=== PATIENT | female | born 1980 | race Caucasian/White ===

== ENCOUNTER → 2017-06-03 | Outpatient (CLI) | payer BC, SELFPAY | PROVIDERS: Family Provider Emergency Medicine; PCP Emergency Medicine; Visit Provider Emergency Medicine | DX: R10.11 Right upper quadrant pain (principal) | CPT/HCPCS: 76705 ==

== ENCOUNTER → 2017-06-15 11:33 | Outpatient (REF) | payer BC, SELFPAY | LOC: LAB 11:33 | PROVIDERS: Visit Provider Nurse Practitioner Family | DX: R69 Illness, unspecified (principal) ==

== ENCOUNTER → 2017-08-09 08:38 | Outpatient (POV) | payer BC, SELFPAY ==
[2017-08-09 08:57] VITALS: BP 149/90; PULSE 75; RESP 16; O2SAT 99
[2017-08-09 09:04] VITALS: BMI 25.6
--- NOTE | 2017-08-09 13:03 | HMH.PMCON ---
Assessment and Plan (1) Facet arthropathy Current visit: Yes Status: Chronic Category: Medical Code(s): M46.90 - Unspecified inflammatory spondylopathy, site unspecified - Assessment and plan all Dx Assessment and Plan for all problems:: We will plan to facet joint injections bilaterally at L3-L4 L4-L5 L5-S1. I believe giving the patient's symptomology this would be very beneficial for her. Patient is currently on anti-inflammatory medication. Patient tried and failed anti-inflammatories and medication. This note was dictated using voice recognition software and may contain errors or omissions HPI - Data of Consult Consult date: 08/09/17 Requesting Physician: Jackie Miller APRN Primary Care Provider: Norm Us MD Family Provider: Norm Us MD - Consult Narrative Reason for consult: Chronic low back pain History of present illness: Ms. Castro is a 36 year old female resents today to talk about her chronic low back pain. Patient states that she has had increasing back pain over the last 4 months. Patient states that pain is constant and achy in nature. She rates her pain a 7 out of 10 today. Patient states that sitting increases her pain while repositioning decreases her pain. Patient has not tried injections, physical therapy, chiropractic therapy. She states her back pain is not radiating.Patient is doing at home stretching regimen and is currently using anti-inflammatories, tramadol from her PCP. CC: Jackie Miller APRN [facility] History I have reviewed the patient's past medical history: Yes Medical History: Reports:: Anxiety, Gall Bladder Disease, Hepatitis Denies:: Diabetes Mellitus Type 1, Diabetes Mellitus Type 2 Other Surgeries: Yes: No Previous Surgery Amputation: No Fractures: No - *Social History Educational Level: Attended College Smoking Status: Current every day smoker Tobacco Type: cigarettes # Packs/Day (cigarettes): 1 Alcohol Intake: never Substance Use Type: former substance user, heroin Occupational Status: employed - Psychiatric History Expresses thoughts of harming self/others: None Suicide Plan Description: No Plan Pschychiatric History:: Reports:: Anxiety *Family Hx:: Diabetes Review of Systems - Review of Systems ROS General: no recent weight change, no fever, no sleep disturbances Respiratory: no cough, no shortness of air, no recurring pulmonary infections Cardiovascular/Peripheral Vascular: No chest pain, No palpitations, no edema, no shortness of breath. Gastrointestinal: no incontinence, normal bowel movements reported Genitourinary: no incontinence Musculoskeletal: Back pain Psychiatric: normal mood/ affect Neurological: [denies weakness in extremities], [denies balance issues] Meds Allergies Allergy/AdvReac Type Severity Reaction Status Date / Time Penicillins Allergy Intermediate Hives Verified 07/26/17 12:41 latex [LATEX] Allergy Unknown Verified 07/26/17 12:41 Objective Vital signs: Pulse Resp BP Pulse Ox 75 16 149/90 99 08/09/17 08:57 08/09/17 08:57 08/09/17 08:57 08/09/17 08:57 Narrative: Physical Exam General: Alert and oriented x3, no acute distress, pleasant and cooperative, [on room air] Lungs: Resps E/U, Symmetrical chest expansion, Eyes: PERRL Musculoskeletal: Flexion and extension of lumbar spine somewhat guarded secondary to pain, deep tendon reflexes normal, strength in upper and lower extremities [5/5], normal gait noted, positive facet loading of the lumbar spine bilaterally Neurological: speech clear, gis analyst developer equal, no gross sensory deficits Opioid Risk Tool - Opioid Risk Tool-Female Family hx alcohol abuse: N Family hx illegal drugs: N Family hx rx drug abuse: N Personal hx alcohol abuse: N Personal hx illegal drugs: Y Personal hx rx drug abuse: N Age: 16-45 Hx of sexual abuse: N Mental health issues-ADD,OCD,Bipolar, etc: N Hx of depression: N
--- NOTE | 2017-08-09 13:07 | P.CONS_ITS ---
Assessment and Plan (1) Facet arthropathy Current visit: Yes Status: Chronic Category: Medical Code(s): M46.90 - Unspecified inflammatory spondylopathy, site unspecified - Assessment and plan all Dx Assessment and Plan for all problems:: We will plan to facet joint injections bilaterally at L3-L4 L4-L5 L5-S1. I believe giving the patient's symptomology this would be very beneficial for her. Patient is currently on anti-inflammatory medication. Patient tried and failed anti-inflammatories and medication. This note was dictated using voice recognition software and may contain errors or omissions HPI - Data of Consult Consult date: 08/09/17 Requesting Physician: Jackie Miller APRN Primary Care Provider: Norm Us MD Family Provider: Norm Us MD - Consult Narrative Reason for consult: Chronic low back pain History of present illness: Ms. Castro is a 36 year old female resents today to talk about her chronic low back pain. Patient states that she has had increasing back pain over the last 4 months. Patient states that pain is constant and achy in nature. She rates her pain a 7 out of 10 today. Patient states that sitting increases her pain while repositioning decreases her pain. Patient has not tried injections, physical therapy, chiropractic therapy. She states her back pain is not radiating.Patient is doing at home stretching regimen and is currently using anti-inflammatories, tramadol from her PCP. CC: Jackie Miller APRN [facility] History I have reviewed the patient's past medical history: Yes Medical History: Reports:: Anxiety, Gall Bladder Disease, Hepatitis Denies:: Diabetes Mellitus Type 1, Diabetes Mellitus Type 2 Other Surgeries: Yes: No Previous Surgery Amputation: No Fractures: No - *Social History Educational Level: Attended College Smoking Status: Current every day smoker Tobacco Type: cigarettes # Packs/Day (cigarettes): 1 Alcohol Intake: never Substance Use Type: former substance user, heroin Occupational Status: employed - Psychiatric History Expresses thoughts of harming self/others: None Suicide Plan Description: No Plan Pschychiatric History:: Reports:: Anxiety *Family Hx:: Diabetes Review of Systems - Review of Systems ROS General: no recent weight change, no fever, no sleep disturbances Respiratory: no cough, no shortness of air, no recurring pulmonary infections Cardiovascular/Peripheral Vascular: No chest pain, No palpitations, no edema, no shortness of breath. Gastrointestinal: no incontinence, normal bowel movements reported Genitourinary: no incontinence Musculoskeletal: Back pain Psychiatric: normal mood/ affect Neurological: [denies weakness in extremities], [denies balance issues] Meds Allergies Allergy/AdvReac Type Severity Reaction Status Date / Time Penicillins Allergy Intermediate Hives Verified 07/26/17 12:41 latex [LATEX] Allergy Unknown Verified 07/26/17 12:41 Objective Vital signs: Pulse Resp BP Pulse Ox 75 16 149/90 99 08/09/17 08:57 08/09/17 08:57 08/09/17 08:57 08/09/17 08:57 Narrative: Physical Exam General: Alert and oriented x3, no acute distress, pleasant and cooperative, [ on room air] Lungs: Resps E/U, Symmetrical chest expansion, Eyes: PERRL Musculoskeletal: Flexion and extension of lumbar spine somewhat guarded secondary to pain
== END ==
PROVIDERS: Family Provider Emergency Medicine; PCP Emergency Medicine; Visit Provider Clinical Nurse Specialist Family Health
DX: M46.90 Unspecified inflammatory spondylopathy, site unspecified (principal)
CPT/HCPCS: 99212; 99202

== ENCOUNTER → 2017-10-06 10:38 | Outpatient (CLI) | payer BC, SELFPAY ==
--- NOTE | 2017-10-06 10:41 | NM_ITS ---
HEPATOBILIARY SCAN WITH FATTY MEAL/ENSURE ORDERING PHYSICIAN : Norm Us MD PATIENT AGE: 36 years GENDER: Female HISTORY: Right upper quadrant pain and nausea Following 7.02 millicuries Tc Choletec, images of the RUQ were obtained. There is prompt uptake of radionuclide by the liver which is grossly unremarkable. Small bowel is visualized. This initial portion of the study is normal. The gallbladder was allowed to fill out to 60 minutes. Fatty meal/1 can of ensure over administered with imaging performed over 60 minutes minutes. Thereafter. The obtain data was analyzed and reveals a 54 % gallbladder ejection fraction (normal greater than 50%; borderline 35-50%). This is normal value . Visual inspection which supports adequate contraction of the gallbladder as well as compatible with this contraction reported by the computer analysis, IMPRESSION: Adequate functioning gallbladder. 54 % gallbladder ejection fraction by computer analysis. No pain with fatty meal.
[2017-10-06 11:34] LABS: HCG Qualitative, Serum Negative (Negative)
== END ==
PROVIDERS: Family Provider Emergency Medicine; PCP Emergency Medicine; Visit Provider Emergency Medicine
DX: Z32.00 Encounter for pregnancy test, result unknown (principal); R10.11 Right upper quadrant pain
CPT/HCPCS: 36415; 78227; 84703; A9537

== ENCOUNTER → 2017-10-08 16:07 | Outpatient (REF) | payer BC, SELFPAY ==
[2017-10-08 19:34] LABS: Amphetamine/Metha Screen,Urine Negative ng/mL (<1000); Barbiturates Screen,Urine Negative ng/mL (<200); Benzodiazepines Screen,Urine Negative ng/mL (200); Cannabinoid Screen,Urine Positive ng/mL (<50); Cocaine Screen,Urine Negative ng/g (<300); Methadone Screen,Urine Negative ng/mL (<300); Opiate Screen,Urine Negative ng/mL (<300); Phencyclidine Screen,Urine Negative ng/mL (<25)
== END ==
LOC: LAB 16:07
PROVIDERS: Visit Provider Emergency Medicine
DX: Z79.899 Other long term (current) drug therapy (principal)
CPT/HCPCS: 80305

== ENCOUNTER → 2017-12-24 14:59 | Outpatient (CLI) | payer BC, SELFPAY ==
--- NOTE | 2017-12-24 15:01 | XR_ITS ---
XR chest 2V HISTORY: ITS.REASON: reaction to ppd ORDERING PHYSICIAN: Norm Us MD PATIENT AGE: 37 years COMPARISON: None available FINDINGS: The cardiomediastinal silhouette and pulmonary vascularity are within normal limits. The lungs are clear without infiltrates, suspicious nodules, or pleural effusions. There are calcified right hilar nodes and a small calcified granuloma right lower lobe. There are no findings to suggest acute tuberculosis. No acute bony abnormalities. IMPRESSION: Old granulomatous disease, no acute chest pathology noted
== END ==
PROVIDERS: PCP Emergency Medicine; Visit Provider Emergency Medicine
DX: R76.11 Nonspecific reaction to tuberculin skin test without active tuberculosis (principal)
CPT/HCPCS: 71046

== ENCOUNTER → 2018-01-31 14:19 | Outpatient (POV) | payer BC, SELFPAY ==
[2018-01-31 14:37] VITALS: BP 128/94; PULSE 76; RESP 18; O2SAT 98; BMI 23.8
--- NOTE | 2018-01-31 16:29 | HMH.PAINSOAP ---
[facility] Pain Management SOAP Note Subjective:: Patient is a pleasant 37-year-old white female who presents today with increasing back pain. Patient was scheduled for lumbar facet joint injection/medial branch block however due to insurance reason she was unable to complete this. Patient still rates her pain a 7 out of 10 states that sitting increases her pain and repeat positioning decreases her pain. Patient's tried and failed stretching therapies. Patient states her back pain is not radiating in any way. Patient is on anti-inflammatories and tramadol from her PCP. Patient does have MRI showing facet hypertrophy. Patient has a lot of pain with any twisting movements. ROS General: no recent weight change, no fever, no sleep disturbances Respiratory: no cough, no shortness of air, no recurring pulmonary infections Cardiovascular/Peripheral Vascular: No chest pain, No palpitations, no edema, no shortness of breath. Gastrointestinal: no incontinence, normal bowel movements reported Genitourinary: no incontinence Musculoskeletal: Back pain Psychiatric: normal mood/ affect Neurological: [denies weakness in extremities], [denies balance issues] Objective:: Physical Exam General: Alert and oriented x3, no acute distress, pleasant and cooperative, [on room air] Lungs: Resps E/U, Symmetrical chest expansion, Eyes: PERRL Musculoskeletal: Flexion and extension of lumbar spine somewhat guarded secondary to pain, deep tendon reflexes normal, strength in upper and lower extremities [5/5], normal gait noted, positive facet loading bilateral lumbar spine, positive Kemps test Neurological: speech clear, manager medicaid equal, no gross sensory deficits Assessment:: Degenerative disc disease lumbar spine, facet arthropathy Plan:: We will schedule L3-L4 L4-L5 L5-S1 facet joint injection/medial branch blocks. I will follow-up with the patient 2 weeks after this and reassess her. Patient is not on any anticoagulation therapy. Patient does not have any open wounds. Patient is not on any antibiotic therapy. This note was dictated using voice recognition software and may contain errors or omissions
--- NOTE | 2018-01-31 16:32 | P.CONS_ITS ---
[facility] Pain Management SOAP Note Subjective:: Patient is a pleasant 37-year-old white female who presents today with increasing back pain. Patient was scheduled for lumbar facet joint injection/medial branch block however due to insurance reason she was unable to complete this. Patient still rates her pain a 7 out of 10 states that sitting increases her pain and repeat positioning decreases her pain. Patient's tried and failed stretching therapies. Patient states her back pain is not radiating in any way. Patient is on anti-inflammatories and tramadol from her PCP. Patient does have MRI showing facet hypertrophy. Patient has a lot of pain with any twisting movements. ROS General: no recent weight change, no fever, no sleep disturbances Respiratory: no cough, no shortness of air, no recurring pulmonary infections Cardiovascular/Peripheral Vascular: No chest pain, No palpitations, no edema, no shortness of breath. Gastrointestinal: no incontinence, normal bowel movements reported Genitourinary: no incontinence Musculoskeletal: Back pain Psychiatric: normal mood/ affect Neurological: [denies weakness in extremities], [denies balance issues] Objective:: Physical Exam General: Alert and oriented x3, no acute distress, pleasant and cooperative, [on room air] Lungs: Resps E/U, Symmetrical chest expansion, Eyes: PERRL Musculoskeletal: Flexion and extension of lumbar spine somewhat guarded secondary to pain, deep tendon reflexes normal, strength in upper and lower extremities [5/5], normal gait noted, positive facet loading bilateral lumbar spine, positive Kemps test Neurological: speech clear, program checker equal, no gross sensory deficits Assessment:: Degenerative disc disease lumbar spine, facet arthropathy Plan:: We will schedule L3-L4 L4-L5 L5-S1 facet joint injection/medial branch blocks. I will follow-up with the patient 2 weeks after this and reassess her. Patient is not on any anticoagulation therapy. Patient does not have any open wounds. Patient is not on any antibiotic therapy. This note was dictated using voice recognition software and may contain errors or omissions
== END ==
PROVIDERS: Family Provider Emergency Medicine; PCP Emergency Medicine; Visit Provider Clinical Nurse Specialist Family Health
DX: M51.36 Other intervertebral disc degeneration, lumbar region (principal); M54.06 Panniculitis affecting regions of neck and back, lumbar region
CPT/HCPCS: 99213

== ENCOUNTER → 2019-01-31 14:48 | Outpatient (CLI) | payer BC, SELFPAY ==
[2019-01-31 15:06] LABS: Basophils % 0.4 % (0.1-2.0); Eosinophils # 0.2 K/mm3 (0.0-0.4); Eosinophils % 2.6 % (0.1-12.0); Hematocrit 44.5 % (37.0-47.0); Hemoglobin 14.5 g/dL (12.2-16.2); Lymphocytes # 2.4 K/mm3 (0.7-4.5); Lymphocytes % 28.2 % (10-50); Mean Corpuscular HGB Conc 32.6 g/dL (31.8-35.4); Mean Corpuscular Hemoglobin 30.5 pg (27.0-31.2); Mean Corpuscular Volume 93.7 fl (81-99); Mean Platelet Volume 7.9 fl (7.4-10.4); Monocytes # 0.4 K/mm3 (0.1-1.0); Monocytes % 4.2 % (1.7-9.3); Neutrophils # 5.5 K/mm3 (1.8-7.8); Neutrophils % 64.6 % (37.0-80.0); Platelet Count 384 K/mm3 (142-424); Red Blood Count 4.75 M/mm3 (4.20-5.40); Red Cell Distribution Width 13.2 % (11.5-17.5); White Blood Count 8.5 K/mm3 (4.8-10.8)
[2019-01-31 16:03] LABS: Alanine Aminotransferase 24 U/L (12-78); Albumin/Globulin Ratio 1.1 (1.1-1.8); Alkaline Phosphatase 73 U/L (46-116); Anion Gap 16.3 mEq/L (5-15); Aspartate Amino Transferase 14 U/L (15-37); Bilirubin,Total 0.2 mg/dL (0.2-1.0); Blood Urea Nitrogen 9 mg/dL (7-18); Calcium 9.3 mg/dL (8.5-10.1); Carbon Dioxide 24 mmol/L (21.0-32.0); Chloride 103 mmol/L (98-107); Chol/HDL Ratio 6.5 (1-3.5); Cholesterol 203 mg/dL (140-200); Creatinine,Serum 0.77 mg/dL (0.55-1.02); Estimated Glomerular Filt Rate 85 ml/min (>60); Free T4 (Free Thyroxine) 0.92 ng/dl (0.76-1.46); GFR (African American) 103 ML/MIN (>60); Globulin 3.6 gm/dl (1.3-3.2); Glucose 87 mg/dL (74-106); HDL Cholesterol 31 mg/dL (29-89); LDL Cholesterol 106 mg/dL (0-130); Potassium 4.3 mmoL/L (3.5-5.1); Sodium 139 mmol/L (136-145); Thyroid Stimulating Hormone 1.48 uIU/ml (0.358-3.740); Total Protein,Serum 7.6 gm/dL (6.4-8.2); Triglycerides 331 mg/dL (30-200); VLDL Cholesterol 66 mg/dL (0-40)
[2019-02-02 12:36] LABS: Vitamin D 25 Hydroxy 25.9 ng/mL (30.0-100.0)
== END ==
PROVIDERS: Visit Provider Emergency Medicine
DX: R53.83 Other fatigue (principal); E55.9 Vitamin D deficiency, unspecified
CPT/HCPCS: 80053; 80061; 82652; 84439; 84443; 85025

== ENCOUNTER → 2019-05-22 09:56 | Outpatient (POV) | payer BC, SELFPAY | PROVIDERS: Visit Provider Specialist | DX: M54.16 Radiculopathy, lumbar region (principal); M79.605 Pain in left leg; M79.604 Pain in right leg; R20.0 Anesthesia of skin; R20.2 Paresthesia of skin | CPT/HCPCS: 95886; 95909 ==

== ENCOUNTER → 2019-10-11 13:46 | Outpatient (CLI) | payer MEDICAID, SELFPAY ==
--- NOTE | 2019-10-11 13:46 | MR_ITS ---
PROCEDURE: MR LUMBAR SPINE WO CON CLINICAL INDICATION: back pain Low back pain, right leg numbness and tingling COMPARISON: FOAM RUBBER MOLDER/O MRI-L-SPINE W/O from 04/23/2017 TECHNIQUE: Standard multiplanar multiecho sequences are performed without contrast. 3-D MIP and myelographic images are also rendered and reviewed FINDINGS: There is normal alignment. The spinal cord ends at the T12 level. The disc spaces are well preserved in the lumbar spine. No disc herniation or canal stenosis. There is some minimal facet hypertrophic change at L4-5 and L5-S1 which is nonspecific. IMPRESSION: Essentially negative MRI of the lumbar spine with no significant change. Minimal facet hypertrophy at L4-5 and L5-S1 not significantly changed. Dictated by: Kong Grajeda MD 10/12/2019 12:27 Electronically signed by Kong Grajeda MD in [place] 10/12/2019 12:27
== END ==
PROVIDERS: PCP Emergency Medicine; Visit Provider Emergency Medicine
DX: M54.9 Dorsalgia, unspecified (principal)
CPT/HCPCS: 72148; 76376

== ENCOUNTER 2019-12-01 12:03 | Emergency (ER) | payer MEDICAID, SELFPAY ==
[2019-12-01 12:18] VITALS: BP 131/96; PULSE 77; RESP 16; TEMP 36.8; O2SAT 100; BMI 23.8
[2019-12-01 12:34] VITALS: BP 120/83; PULSE 80; RESP 18; O2SAT 100
[2019-12-01 12:41] LABS: Basophils % 0.2 % (0.1-2.0); Eosinophils # 0.1 K/mm3 (0.0-0.4); Eosinophils % 0.9 % (0.1-12.0); Hematocrit 41.6 % (37.0-47.0); Hemoglobin 14.5 g/dL (12.2-16.2); Lymphocytes # 1.1 K/mm3 (0.7-4.5); Lymphocytes % 8.2 % (10-50); Mean Corpuscular HGB Conc 34.9 g/dL (31.8-35.4); Mean Corpuscular Hemoglobin 31.7 pg (27.0-31.2); Mean Corpuscular Volume 90.9 fl (81-99); Mean Platelet Volume 7.8 fl (7.4-10.4); Monocytes # 0.3 K/mm3 (0.1-1.0); Monocytes % 2.3 % (1.7-9.3); Neutrophils # 11.7 K/mm3 (1.8-7.8); Neutrophils % 88.4 % (37.0-80.0); Platelet Count 377 K/mm3 (142-424); Red Blood Count 4.58 M/mm3 (4.20-5.40); Red Cell Distribution Width 12.6 % (11.5-17.5); White Blood Count 13.3 K/mm3 (4.8-10.8)
[2019-12-01 12:42] LABS: Chloride 99 mmol/L (98-107); Sodium 135 mmol/L (136-145)
[2019-12-01 12:42] LABS: Microscopic, Urine URINE MICROSCOPIC (MICROSCOPIC); Urine Pregnancy, HCG Qual. Positive (Negative)
[2019-12-01 12:43] LABS: Appearance,Urine CLEAR (Clear); Blood, Urine 1+ (Negative); Color,Urine YELLOW (Yellow); Glucose,Urine (UA) Negative (Negative); Ketones,Urine 3+ (Negative); Leukocyte Esterase,Urine Negative (Negative); Nitrate,Urine Negative (Negative); Protein,Urine TRACE (Negative); Specific Gravity, Urine >= 1.030 (1.005-1.030); Urobilinogen,Urine 0.2 EU/dl (0.2)
[2019-12-01 12:45] LABS: Bilirubin,Urine 1+ (Negative)
[2019-12-01 12:45] LABS: Alanine Aminotransferase 17 U/L (12-78); Albumin Level 5.2 g/dl (3.5-5.0); Albumin/Globulin Ratio 1.3 (1.1-1.8); Alkaline Phosphatase 76 U/L (38-126); Aspartate Amino Transferase 27 U/L (14-36); Bilirubin,Total 0.7 mg/dl (0.2-1.3); Blood Urea Nitrogen 11 mg/dl (7-17); Calcium 10.2 mg/dl (8.4-10.2); Carbon Dioxide 21 mmol/L (22.0-30.0); Creatinine Clearance Estimated 120 mL/min (50-200); Estimated Glomerular Filt Rate 112 ml/min (>60); GFR (African American) 136 ML/MIN (>60); Glucose 103 mg/dl (74-100); Total Protein,Serum 9.2 g/dl (6.3-8.2)
[2019-12-01 12:46] LABS: MANUAL DIFFERENTIAL MANUAL DIFFERENTIAL (MANUAL DIFF)
[2019-12-01 12:52] LABS: Lymphocytes % 25 % (10-50); Neutrophils % 75 % (42-76); Total Cells Counted 100
[2019-12-01 12:53] LABS: Platelet Estimate Normal; RBC Morphology Normal
[2019-12-01 12:54] LABS: Bacteria,Urine 2+ /lpf; Mucus,Urine 1+ /lpf; RBC,Urine Occasional #/hpf (0-3)
[2019-12-01 13:34] VITALS: BP 120/69; PULSE 69; RESP 15; O2SAT 100
--- NOTE | 2019-12-01 13:43 | HMH.EDNVD ---
ED Disposition Clinical Impression: Hyperemesis gravidarum Disposition: Home, Self-Care Condition on Discharge: Good Instructions: DI for Diarrhea and Traveler's Diarrhea -- Adult, DI for Diarrhea and Traveler's Diarrhea -- Child, DI for Nausea -- Adult, DI for Nausea -- Child Prescriptions: Metoclopramide HCl [Reglan 10mg Tab] 10 mg PO QID 10 Days #30 tab Transmission Status: Pending to [id number] Referrals: Norm Us MD [Primary Care Provider] - - Critical Care Critical Care Time: No Attestation: On 12/01/19, the high probability of a clinically significant, sudden or life threatening deterioration of the following system(s) required my full and direct attention, intervention and personal management. The time I documented below is in addition to time spent performing reported procedures but includes the following listed in this critical care notation. Medical Decision Making - Medical Records Medical records reviewed: Yes: I reviewed the patient's medical records. - Hank Inquiry Pt receiving controlled substance: No Vital Signs: 12/01/19 12:18 12/01/19 12:34 12/01/19 13:34 Temperature 98.2 F Temperature Source Oral Pulse Rate [Right Radial] 77 80 69 Respiratory Rate 16 18 15 Blood Pressure [Right Arm] 131/96 H 120/83 120/69 Blood Pressure Mean [Right Arm] 107 95 86 Blood Pressure Source [Right Arm] Automatic Cuff Blood Pressure Position [Right Arm] Supine 02 Sat by Pulse Oximetry 100 100 100 Oxygen Delivery Method Room Air - Lab Data Lab results reviewed: Yes: I reviewed the patient's lab results. Lab Results 12/01/19 12:10: Urine Color Yellow, Urine Appearance Clear, Urine pH 6.0, Ur Specific Mcdermott >= 1.030, Urine Protein Trace, Urine Glucose (UA) Negative, Urine Ketones 3+, Urine Blood 1+, Urine Nitrate Negative, Urine Bilirubin 1+ A, Urine Urobilinogen 0.2, Ur Leukocyte Esterase Negative, Urine RBC Occasional, Urine WBC 3-5, Ur Squamous Epith Cells 5-10, Urine Bacteria 2+, Urine Mucus 1+ 12/01/19 12:10: Urine HCG, Qual Positive 12/01/19 12:22: WBC 13.3 H, RBC 4.58, Hgb 14.5, Hct 41.6, MCV 90.9, MCH 31.7 H, MCHC 34.9, RDW 12.6, Plt Count 377, MPV 7.8, Neut % (Auto) 88.4 H, Lymph % (Auto) 8.2 L, [place] % (Auto) 2.3, Eos % (Auto) 0.9, Baso % (Auto) 0.2, Neut # (Auto) 11.7 H, Lymph # (Auto) 1.1, [place] # (Auto) 0.3, Eos # (Auto) 0.1, Baso # (Auto) 0.0, Total Counted 100, Neutrophils % (Manual) 75, Lymphocytes % (Manual) 25, Platelet Estimate Normal, RBC Morphology Normal 12/01/19 12:22: Sodium 135 L, Potassium 4.0, Chloride 99, Carbon Dioxide 21 L, Anion Gap 19.0 H, BUN 11, Creatinine 0.60, Estimated Creat Clear 120, Estimated GFR 112, Est GFR ( Amer) 136, Glucose 103 H, Calcium 10.2, Total Bilirubin 0.7, AST 27, ALT 17, Alkaline Phosphatase 76, Total Protein 9.2 H, Albumin 5.2 H, Globulin 4.0 H, Albumin/Globulin Ratio 1.3 Result diagrams: 12/01/19 12:22 12/01/19 12:22 Orders (Tests/Meds): ED MEDICATIONS Generic Name Dose Route Start Last Admin Trade Name Freq PRN Reason Stop Dose Admin Sodium Chloride 1,000 mls @ 999 mls/hr 12/01/19 12:45 12/01/19 12:42 Sod Chlor 0.9% 1000ml Bag IV 12/01/19 13:45 999 mls/hr .Q1H1M BELEN Administration ORDERS Category Date Time Status Urine Culture Stat Micro 12/01/19 12:10 Received Nausea/Vomiting/Diarrhea HPI - General Chief complaint: Nausea/Vomiting/Diarrhea Stated complaint: 6 wk preg vomiting Time Seen by Provider: 12/01/19 12:30 Mode of Arrival: Ambulatory Limitations: No Limitations Description of Symptoms (Recalled from ER Triage Doc. by RN): Pt reports vomitting x2 days, pt reports she is approx 6 weeks . Pt denies abd pain, vaginal bleeding, burning with urination. - History of Present Illness MD complaint: nausea, vomiting Onset (ago): hour(s) Description of Vomiting: food contents Description of Diarrhea: water Associated Abdominal Pain: No Severity scale (1-10): 2 Co
[2019-12-01 13:54] VITALS: BP 124/85; PULSE 85; RESP 20; TEMP 36.8; O2SAT 100
== END 2019-12-01 13:55 | disposition home or self-care (01) ==
PROVIDERS: Emergency Provider Family Medicine; PCP Emergency Medicine
DX: O21.0 Mild hyperemesis gravidarum (principal); Z3A.01 Less than 8 weeks gestation of pregnancy; F41.8 Other specified anxiety disorders; Z88.0 Allergy status to penicillin
CPT/HCPCS: 80053; 81001; 81025; 85007; 85025; 87086; 87088; 87186; 96365; 99284

== ENCOUNTER → 2020-03-07 18:07 | Outpatient (CLI) | payer MEDICAID, SELFPAY | PROVIDERS: Visit Provider Nurse Practitioner Family | DX: N39.0 Urinary tract infection, site not specified (principal) | CPT/HCPCS: 87086 ==

== ENCOUNTER → 2020-05-16 16:20 | Outpatient (CLI) | payer OTHER, MEDICAID, SELFPAY | PROVIDERS: Visit Provider Nurse Practitioner Family | DX: N39.0 Urinary tract infection, site not specified (principal) | CPT/HCPCS: 87086 ==

== ENCOUNTER 2020-10-17 20:36 | Emergency (ER) | payer MEDICAID, SELFPAY ==
[2020-10-17 21:30] VITALS: BP 149/88; PULSE 69; RESP 20; TEMP 36.4; O2SAT 100; BMI 27.4
--- NOTE | 2020-10-17 21:58 | HMH.EDUTC ---
[facility] [place] Disposition Clinical Impression: Exposure to COVID-19 virus Sinusitis Qualifiers: Sinusitis location: unspecified location Chronicity: acute Recurrence: non-recurrent Qualified Code(s): J01.90 - Acute sinusitis, unspecified Disposition: Home, Self-Care Condition on Discharge: Good Instructions: Sinusitis, DI for Sinusitis Additional Instructions: Drink plenty of fluids. Take tylenol for pain or fever. Return if you begin to have difficulty breathing. Follow up with your regular doctor. GO TO THE ER FOR ANY WORSENING SYMPTOMS Prescriptions: Brompheniramine/Pseudoephed/Dm [Bromfed Dm Cough Syrup] 5 ml PO Q6HP PRN #240 syrup PRN Reason: Cough Transmission Status: Received by [id number] Azithromycin [Z-Ronald 250mg Tab*] 250 mg PO UD DOSE PK #6 tab Transmission Status: Received by [id number] Referrals: Norm Us MD [Primary Care Provider] - Forms: Work/School Release Time of Disposition: 22:10 Medical Decision Making - Medical Records Medical records reviewed: No: I reviewed the patient's medical records. - Hank Inquiry Pt receiving controlled substance: No Vital Signs: 10/17/20 21:30 10/17/20 22:14 Temperature 97.5 F L 97.5 F L Temperature Source Oral Pulse Rate 69 Pulse Rate [Right Brachial] 69 Respiratory Rate 20 20 Blood Pressure 149/88 H Blood Pressure [Right Arm] 149/88 H Blood Pressure Mean [Right Arm] 108 Blood Pressure Source [Right Arm] Automatic Cuff Blood Pressure Position [Right Arm] Sitting 02 Sat by Pulse Oximetry 100 Oxygen Delivery Method Room Air - Lab Data Lab results reviewed: Yes: I reviewed the patient's lab results. Lab Results 10/17/20 21:46: Influenza Type A Ag Negative, Influenza Type B Ag Negative 10/17/20 21:46: Strep Scn Rapid Clinic Negative Orders (Tests/Meds): ORDERS Category Date Time Status Covid-19 Nasal PCR ([facility]) Routine Lab 10/17/20 21:31 Received Strep Screen Confirmation Stat Micro 10/17/20 21:46 [facility]ceived [facility] HPI - General Stated complaint: coivd test Time Seen by Provider: 10/17/20 21:59 - History of Present Illness Provider Complaint: She states that she has had sinus congestion, sore throat, body aches, chilling and low grade fever for the past 2 days. She states that she has lost her sense of smell, but she sometimes has this symptom with sinus infections. She denies any known exposure to covid, but she would like to be tested. - Related Data Home Medications Medication Instructions Recorded Confirmed methadone 40 mg soluble tablet 80 mg PO DAILY tab 01/04/19 09/25/20 Previous Rx's Medication Instructions Recorded gabapentin 600 mg tablet 600 mg PO TID #90 tab 08/20/20 venlafaxine 75 mg capsule,extended 75 mg PO DAILY #30 cap 09/25/20 release 24 hr fluoxetine 60 mg tablet See Rx Instructions .ROUTE 10/04/20 .COMPLEX #90 tab Azithromycin [Z-Ronald 250mg Tab*] 250 mg PO UD DOSE PK #6 tab 10/17/20 Brompheniramine/Pseudoephed/Dm 5 ml PO Q6HP PRN #240 syrup 10/17/20 [Bromfed Dm Cough Syrup] Allergies Allergy/AdvReac Type Severity Reaction Status Date / Time Penicillins Allergy Intermediate Hives Verified 09/25/20 15:27 [facility] History - Hepatitis A Screen Attestation statement:: This patient has been screened for Hepatitis A risk factors. I have reviewed the patient's past medical history: Yes Medical History: Reports:: Anxiety, Cerebrovascular Accident, Depression, Gall Bladder Disease, Hepatitis Denies:: Diabetes Mellitus Type 1, Diabetes Mellitus Type 2 Other Medical History: Reports: Other Comment: Back pain Other Surgeries: Yes: No Previous Surgery Amputation: No Fractures: No - Social History Smoking Status: Current every day smoker Tobacco Type: cigarettes # Packs/Day (cigarettes): 1 Alcohol Intake: never Alcohol Intake Frequency:: holidays/special occasions only Substance Use Type: former substance user, methamphetamine Occupat
[2020-10-17 22:06] LABS: UTC Strep Screen (Rapid) Negative (Negative)
[2020-10-17 22:07] LABS: UTC Influenza A Antigen Negative (Negative); UTC Influenza B Antigen Negative (Negative)
[2020-10-17 22:14] VITALS: BP 149/88; PULSE 69; RESP 20; TEMP 36.4; O2SAT 100
== END 2020-10-17 22:19 | disposition home or self-care (01) ==
PROVIDERS: Emergency Provider Nurse Practitioner Family; PCP Emergency Medicine
DX: Z20.822 Contact with and (suspected) exposure to COVID-19 (principal); J01.90 Acute sinusitis, unspecified; F41.8 Other specified anxiety disorders
CPT/HCPCS: 87804; 87880; 99202; G0463; U0003

== ENCOUNTER 2021-01-09 13:12 | Emergency (ER) | payer MEDICAID, SELFPAY ==
[2021-01-09 13:15] VITALS: BP 126/79; PULSE 87; RESP 18; TEMP 37.2; O2SAT 97; BMI 27.4
[2021-01-09 13:53] LABS: UTC Strep Screen (Rapid) Negative (Negative)
[2021-01-09 13:55] VITALS: BP 126/79; PULSE 87; RESP 18; TEMP 37.2; O2SAT 97
--- NOTE | 2021-01-09 14:09 | HMH.EDUTC ---
[facility] [place] Disposition Clinical Impression: Viral syndrome Disposition: Home, Self-Care Condition on Discharge: Good Instructions: Acute Bronchitis, Preventing the Spread of Coronavirus Discharge Instructions Additional Instructions: Drink plenty of fluids. Take tylenol or ibuprofen for pain or fever. Take the medications as directed. Follow up with your regular doctor. GO TO THE ER FOR ANY WORSENING SYMPTOMS Prescriptions: Ondansetron [Zofran 4mg ODT] 4 mg PO Q8HP PRN #20 tab.rapdis PRN Reason: Nausea Transmission Status: Received by [id number] Azithromycin [Z-Ronald 250mg Tab*] 250 mg PO UD DOSE PK #6 tab Transmission Status: Received by [id number] Referrals: Norm Us MD [Primary Care Provider] - Forms: Work/School Release Time of Disposition: 14:13 Medical Decision Making - Medical Records Medical records reviewed: No: I reviewed the patient's medical records. - Hank Inquiry Pt receiving controlled substance: No Vital Signs: 01/09/21 13:15 01/09/21 13:55 Temperature 98.9 F 98.9 F Temperature Source Oral Pulse Rate 87 Pulse Rate [Right Brachial] 87 Respiratory Rate 18 18 Blood Pressure 126/79 Blood Pressure [Right Arm] 126/79 Blood Pressure Mean [Right Arm] 94 Blood Pressure Source [Right Arm] Automatic Cuff Blood Pressure Position [Right Arm] Sitting 02 Sat by Pulse Oximetry 97 Oxygen Delivery Method Room Air - Lab Data Lab Results 01/09/21 13:39: Strep Scn Rapid Clinic Negative Orders (Tests/Meds): ORDERS Category Date Time Status Strep Screen Confirmation Stat Micro 01/09/21 13:39 Received [facility] [place] HPI - General Stated complaint: covid test/sympoms Time Seen by Provider: 01/09/21 13:25 Mode of Arrival: Ambulatory Source of Information: Patient Limitations: No Limitations Description of Symptoms (Recalled from Triage Doc. by RN): PATIENT C/O COUGH, SORE THROAT, HEADACHE AND WEAKNESS X 2 DAYS HEENT Symptoms (Recalled from RN notes): Yes Resp Symptoms (Recalled from RN notes): Yes Skin Symptoms (Recalled from RN notes): No MS Symptoms (Recalled from RN notes): No Functional Status (Recalled from RN notes): WNL - History of Present Illness Provider Complaint: She c/o sore throat, chest congestion, n/v and feeling bad for the past 2 days. Her mother currently has covid and she lives with her mother. - Related Data Home Medications Medication Instructions Recorded Confirmed methadone 40 mg soluble tablet 80 mg PO DAILY tab 01/04/19 11/19/20 Previous Rx's Medication Instructions Recorded buspirone 10 mg tablet 10 mg PO TID #90 tab 11/19/20 fluoxetine 60 mg tablet See Rx Instructions .ROUTE 12/25/20 .COMPLEX #90 tab pregabalin 75 mg capsule 75 mg PO BID 15 Days #30 cap 12/31/20 venlafaxine 150 mg See Rx Instructions .ROUTE 12/31/20 capsule,extended release 24 hr .COMPLEX #30 cap Azithromycin [Z-Ronald 250mg Tab*] 250 mg PO UD DOSE PK #6 tab 01/09/21 Ondansetron [Zofran 4mg ODT] 4 mg PO Q8HP PRN #20 tab.rapdis 01/09/21 Allergies Allergy/AdvReac Type Severity Reaction Status Date / Time Penicillins Allergy Intermediate Hives Verified 11/19/20 15:43 - Worker's Comp Is this a Worker's Comp case?: No [facility] History - Hepatitis A Screen Drug use history?: No High risk sexual behaviors?: No History of sexually transmitted infection?: No Currently employed?: No Childcare worker?: No Do you have indoor plumbing?: Yes Do you have electricity?: Yes Attestation statement:: This patient has been screened for Hepatitis A risk factors. I have reviewed the patient's past medical history: Yes Medical History: Reports:: Anxiety, Cerebrovascular Accident, Depression, Gall Bladder Disease, Hepatitis Denies:: Diabetes Mellitus Type 1, Diabetes Mellitus Type 2 Other Medical History: Reports: Other Comment: Back pain Other Surgeries: Yes: No Previous Surgery Amputation: No Fractures: No - Social Hist
--- NOTE | 2021-01-09 19:58 | PC.NURSE ---
PATIENT NOTIFIED OF POSITIVE COVID TEST AT THIS TIME
== END 2021-01-09 14:21 | disposition home or self-care (01) ==
PROVIDERS: Emergency Provider Nurse Practitioner Family; PCP Emergency Medicine
DX: U07.1 COVID-19 (principal); B34.9 Viral infection, unspecified; F17.210 Nicotine dependence, cigarettes, uncomplicated; F41.8 Other specified anxiety disorders
CPT/HCPCS: 87880; 99203; G0463; U0003

== ENCOUNTER → 2021-05-09 13:18 | Outpatient (CLI) | payer MEDICAID, SELFPAY ==
[2021-05-09 13:49] LABS: Chloride 103 mmol/L (98-107)
[2021-05-09 13:50] LABS: Sodium 139 mmol/L (136-145)
[2021-05-09 13:52] LABS: Alanine Aminotransferase 15 U/L (12-78); Alkaline Phosphatase 100 U/L (38-126); Aspartate Amino Transferase 30 U/L (14-36); Bilirubin,Total 0.3 mg/dl (0.2-1.3); Blood Urea Nitrogen 5 mg/dl (7-17); Carbon Dioxide 26 mmol/L (22.0-30.0); Cholesterol 316 mg/dl (140-200); Estimated Glomerular Filt Rate 94 ml/min (>60); GFR (African American) 113 ML/MIN (>60)
[2021-05-09 13:53] LABS: Albumin Level 4.2 g/dl (3.5-5.0); Albumin/Globulin Ratio 1.4 (1.1-1.8); Calcium 9.5 mg/dl (8.4-10.2); Chol/HDL Ratio 7.7 (1-3.5); Globulin 3.1 g/dL (1.3-3.2); Glucose 84 mg/dl (74-100); HDL Cholesterol 41 mg/dl (40-60); Total Protein,Serum 7.3 g/dl (6.3-8.2)
[2021-05-09 13:54] LABS: Triglycerides 465 mg/dl (30-150)
[2021-05-09 13:55] LABS: Basophils % 0.5 % (0.1-2.0); Eosinophils # 0.2 K/mm3 (0.0-0.4); Eosinophils % 2.6 % (0.1-12.0); Lymphocytes # 1.8 K/mm3 (0.7-4.5); Lymphocytes % 20.2 % (10-50); Mean Corpuscular HGB Conc 33.4 g/dL (31.8-35.4); Mean Corpuscular Hemoglobin 29.9 pg (27.0-31.2); Mean Corpuscular Volume 89.4 fl (81-99); Mean Platelet Volume 8.1 fl (7.4-10.4); Monocytes # 0.4 K/mm3 (0.1-1.0); Monocytes % 4.6 % (1.7-9.3); Neutrophils # 6.3 K/mm3 (1.8-7.8); Neutrophils % 72.1 % (37.0-80.0); Platelet Count 392 K/mm3 (142-424); Red Blood Count 4.36 M/mm3 (4.20-5.40); Red Cell Distribution Width 14.6 % (11.5-17.5); White Blood Count 8.7 K/mm3 (4.8-10.8)
[2021-05-09 14:04] LABS: Direct LDL Cholesterol 127.11 mg/dL (100-129)
[2021-05-09 14:23] LABS: Erythrocyte Sedimentation Rate 43 mm/hr (0-20)
[2021-05-09 14:26] LABS: Thyroid Stimulating Hormone 1.23 uIU/mL (0.465-4.68)
[2021-05-09 14:49] LABS: 25-OH Vitamin D, Total 31.2 ng/mL (30-100)
[2021-05-09 15:07] LABS: Amphetamine/Metha Screen,Urine Negative ng/ml (<1000); Barbiturates Screen,Urine Negative ng/ml (<200)
[2021-05-09 15:08] LABS: Benzodiazepines Screen,Urine Negative ng/ml (<200)
[2021-05-09 15:09] LABS: Cannabinoid Screen,Urine Positive ng/ml (<50); Cocaine Screen,Urine Negative ng/ml (<300)
[2021-05-09 15:10] LABS: Methadone Screen,Urine Positive ng/ml (<300); Opiate Screen,Urine Negative ng/ml (<300)
[2021-05-09 15:11] LABS: Phencyclidine Screen,Urine Negative ng/ml (<25)
== END ==
PROVIDERS: Visit Provider Emergency Medicine
DX: E66.3 Overweight (principal); E55.9 Vitamin D deficiency, unspecified; Z79.899 Other long term (current) drug therapy; Z68.25 Body mass index [BMI] 25.0-25.9, adult
CPT/HCPCS: 80053; 80061; 80305; 82306; 84443; 85025; 85651

== ENCOUNTER → 2021-05-22 14:38 | Outpatient (POV) | payer MEDICAID, SELFPAY ==
[2021-05-22 15:17] VITALS: BP 154/90; PULSE 85; RESP 18; O2SAT 97; BMI 28.7
--- NOTE | 2021-05-25 14:44 | HMH.PMCON ---
Assessment and Plan (1) Degenerative joint disease (DJD) of lumbar spine Status: Chronic Category: Medical Code(s): M47.816 - Spondylosis without myelopathy or radiculopathy, lumbar region - Assessment and plan all Dx Assessment and Plan for all problems:: Patient does have per MRI report facet arthropathy and hypertrophy at L4-L5 L5-S1. We will schedule her for facet joint injections/medial branch blocks at L4-L5 L5-S1 bilaterally. The patient is not on any anticoagulation therapy. She is not diabetic. We will plan for the injections. If she does get relief we will proceed with a second round of injections. She does understand she will need to get at least 60% relief with the 2 rounds of injections. If patient gets relief greater than 60% with each round, we will plan for RFA. Possible side effects of corticosteroids have been discussed with the patient. Risks and benefits of the procedure have been explained to the patient. Patient would like to proceed with the procedure. Patient has been instructed to contact the clinic with any concerns before the next appointment. Dr. Portillo has reviewed this note and agrees with this plan of care. This note was dictated using voice recognition software and make contain errors or omissions. HPI - Data of Consult Patient: new to practice Consult date: 05/25/21 Requesting Physician: Breanna Lopez APRN - Consult Narrative Reason for consult: Low back pain History of present illness: Ms. Moreon is a 40 year old female who presents today for consultation for low back pain. The patient says that she has pain made worse with bending forward and turning extending at waist. She says that the pain has progressively worsened over the last 6 to 7 years. She says that she does have some numbness in her lower extremities but denies any pain. She reports that rising from a sitting position and standing make the pain worse. Walking does not worsen the pain. She says that the pain has gotten worse over the last 2 months after delivery of her child. She does have an MRI from 10/11/2019. She is currently taking pregabalin 75 mg 1 tablet p.o. twice daily by Dr. Us. She does take anti-inflammatories as needed. Over the years she has tried physical therapy for more than 6 weeks and does continue with home stretching. She does rate her pain a 6 out of 10 today. CC: Breanna Lopez APRN [facility] History I have reviewed the patient's past medical history: Yes Medical History: Reports:: Anxiety, Cerebrovascular Accident, Depression, Gall Bladder Disease, Hepatitis Denies:: Diabetes Mellitus Type 1, Diabetes Mellitus Type 2 *Have you ever received a pneumonia vaccine?: No *Have you received a flu vaccine this season?: No Other Medical History: Reports: Other Other Surgeries: Yes: No Previous Surgery Amputation: No Fractures: No - *Social History Smoking Status: Current every day smoker Tobacco Type: cigarettes # Packs/Day (cigarettes): 1 Alcohol Intake: never Alcohol Intake Frequency:: holidays/special occasions only Substance Use Type: former substance user, methamphetamine *Occupational Status:: employed Housing: house Household Members: spouse *Travel in the last 8 weeks: None - Psychiatric History Pschychiatric History:: Reports:: Anxiety, Depression Family Hx:: Diabetes Review of Systems - Constitutional Comments: Review of Systems General: No recent weight changes, no fever, no sleep disturbances Respiratory: No cough, no shortness of air, no recurring pulmonary infections Cardiovascular/peripheral vascular: No chest pain, no palpitations, no edema, no shortness of breath Gastrointestinal: No new onset incontinence, normal bowel movements reported Genitourinary: No new onset incontinence Musculoskeletal: Low back pain made worse with turning and twisting at waist, made worse with extension at waist Psychiatric: [Normal mood/affect] Neurological: [Denies weakn
== END ==
PROVIDERS: Visit Provider Clinical Nurse Specialist Family Health
DX: M47.816 Spondylosis without myelopathy or radiculopathy, lumbar region (principal)
CPT/HCPCS: 99202; G0463

== ENCOUNTER → 2021-05-27 13:41 | Outpatient (CLI) | payer MEDICAID, SELFPAY ==
--- NOTE | 2021-05-27 13:41 | MR_ITS ---
PROCEDURE: MR LUMBAR SPINE WO CON CLINICAL INDICATION: back pain COMPARISON: MR MR LUMBAR SPINE WO CON from 10/11/2019 TECHNIQUE: Standard multiplanar multiecho sequences are performed without contrast. 3-D MIP and myelographic images are also rendered and reviewed FINDINGS: There is normal alignment. The spinal cord ends at the T12 level. T12-L1: Mild degenerative disc disease. L1-L2: Unremarkable. L2-L3: Unremarkable. L3-L4: Unremarkable. L4-5: Mild facet and ligamentum hypertrophy. L5-S1: Facet and ligamentum hypertrophic change with mild bilateral lateral recess narrowing. The facet hypertrophy does appear slightly worse on the left compared to the previous exam with slight increase in left lateral recess narrowing. Canal stenosis is present at this level at 10 mm. No extruded herniated disc. IMPRESSION: 1. L4-5: Mild facet and ligamentum hypertrophy. 2. L5-S1: Facet and ligamentum hypertrophic change with mild bilateral lateral recess narrowing. The facet hypertrophy does appear slightly worse on the left compared to the previous exam with slight increase in left lateral recess narrowing with canal stenosis 3. No extruded herniated disc Dictated by: Kong Grajeda MD 05/28/2021 10:41 Kong Grajeda MD in [place] 05/28/2021 10:41
== END ==
PROVIDERS: PCP Emergency Medicine; Visit Provider Emergency Medicine
DX: M54.9 Dorsalgia, unspecified (principal); M54.50 Low back pain, unspecified
CPT/HCPCS: 72148; 76376

== ENCOUNTER 2021-06-11 12:51 | Day surgery (SDC) | payer MEDICAID, SELFPAY ==
[2021-06-11 12:59] VITALS: BP 157/98; PULSE 60; RESP 20; TEMP 36.7; O2SAT 100; BMI 28.3
[2021-06-11 13:13] VITALS: BP 149/92; PULSE 62; RESP 18; O2SAT 99
[2021-06-11 13:15] VITALS: PULSE 72; RESP 18; O2SAT 100
--- NOTE | 2021-06-11 13:19 | HMH.PMPROC ---
- Procedure Date: 06/11/21 Time: 13:19 Anesthesiologist:: Arron Portillo MD Complications:: None Pre-procedure Diagnosis:: Degenerative disc disease of lumbar spine with lumbar spondylosis and lumbar facet arthropathy Post-procedure Diagnosis:: Same Indications for Procedure:: Patient is a pleasant 40-year-old white female who we are treating for low back pain with lumbar spondylosis and lumbar facet arthropathy. She has increasing pain over the facet joints of L4-5 and L5-S1. There is increased pain with extension and twisting. She presents for bilateral medial branch block/facet joint injections of L4-5 and L5-S1 today. Procedure Details:: Lumbar medial branch block Informed consent was obtained and the risks and benefits of the procedure was explained to the patient. The back was prepped using ChloraPrep. The skin and subcutaneous tissues were anesthetized using lidocaine. I placed 22-gauge spinal needles into the facet joint/medial branches of L4-L5 and L5-S1 bilaterally. Needle placement was confirmed with dye. After this we injected 3 mL bupivacaine 0.25% and Depo-Medrol 20 mg into each facet joint/medial branch of L4-L5 and L5-S1 bilaterally. We used a total of 80 mg Depo-Medrol for both levels bilaterally. The patient tolerated the procedure well with no complications. Plan and Disposition:: We will follow-up with her in 2 weeks. Will reevaluate symptoms at that time. If successful we will plan on RF ablation to the facet joint/medial branches of L4-5 and L5-S1 bilaterally.
[2021-06-11 13:25] VITALS: BP 131/88; PULSE 63; RESP 20; O2SAT 100
== END 2021-06-11 13:26 | disposition home or self-care (01) ==
LOC: SC.PAINP 12:52
PROVIDERS: PCP Emergency Medicine; Visit Provider Anesthesiology
DX: M51.36 Other intervertebral disc degeneration, lumbar region (principal); M47.816 Spondylosis without myelopathy or radiculopathy, lumbar region; M54.06 Panniculitis affecting regions of neck and back, lumbar region; F41.9 Anxiety disorder, unspecified; F32.A Depression, unspecified; Z72.0 Tobacco use; Z87.19 Personal history of other diseases of the digestive system; Z88.0 Allergy status to penicillin
CPT/HCPCS: 64493; 64494; J1040; Q9966

== ENCOUNTER → 2021-07-14 11:10 | Outpatient (POV) | payer BC, MEDICAID, SELFPAY ==
[2021-07-14 11:15] VITALS: BP 132/80; PULSE 64; RESP 18; O2SAT 98; BMI 29.0
--- NOTE | 2021-07-14 11:46 | P.CONS_ITS ---
[facility] Pain Management SOAP Note Subjective:: Patient is a female who presents today for follow-up. She recently had medial branch block/facet joint injection at L4-L5 L5-S1. She got 1 week of relief at about 70 to 80%. The patient's pain has returned. Today, she rates her pain a 7 out of 10. She was much more functional following the injection and able to bend forward. She says her pain has returned. She is having worse pain in the a.m. upon awakening and in the p.m. when lifting her daughter. She says that she is now starting to have numbness and tingling into the right lower extremity and right foot. Patient's last MRI does show spinal stenosis lumbar spine. Today, however, she says the pain is made worse with bending. Review of Systems General: No recent weight changes, no fever, no sleep disturbances Respiratory: No cough, no shortness of air, no recurring pulmonary infections Cardiovascular/peripheral vascular: No chest pain, no palpitations, no edema, no shortness of breath Gastrointestinal: No new onset incontinence, normal bowel movements reported Genitourinary: No new onset incontinence Musculoskeletal: Low back pain made worse with bending forward and extension turning twisting at waist Psychiatric: [Normal mood/affect] Neurological: [Denies weakness in extremities], [denies balance issues] Objective:: Physical exam General: Alert and oriented x3, no acute distress, pleasant and cooperative Lungs: Respirations even and unlabored, symmetrical chest expansion Eyes: PERRL Musculoskeletal: Flexion and extension of lumbar [spine] somewhat guarded secondary to pain, [antalgic gait noted], positive Kemps test Neurological: Speech clear, no gross sensory deficit Assessment:: Degenerative disc disease lumbar spine with lumbar facet arthropathy, lumbar spondylosis, and spinal stenosis lumbar spine Plan:: We will schedule the patient for lumbar medial branch block at L4-L5 L5-S1. This will be the patient's number 2 injection. She is not on any anticoagulation therapy. She is not diabetic. We will follow up with her afterwards for further evaluation. We will give her tramadol 50 mg 1 tablet p.o. 3 times daily. Possible side effects of corticosteroids have been discussed with the patient. Risks and benefits of the procedure have been explained to the patient. Patient would like to proceed with the procedure. Patient has been instructed to contact the clinic with any concerns before the next appointment. Dr. Portillo has reviewed this note and agrees with this plan of care. This note was dictated using voice recognition software and make contain errors or omissions. [facility] History I have reviewed the patient's past medical history: Yes Medical History: Reports:: Anxiety, Cerebrovascular Accident, Depression, Gall Bladder Disease, Hepatitis, Hyperlipidemia Denies:: Diabetes Mellitus Type 1, Diabetes Mellitus Type 2 *Have you ever received a pneumonia vaccine?: No *Have you received a flu vaccine this season?: No Other Medical History: Reports: Arthritis, Other Other Surgeries: Yes: No Previous Surgery Amputation: No Fractures: No - *Social History Smoking Status: Current every day smoker Tobacco Type: cigarettes # Packs/Day (cigarettes): 1 Alcohol Intake: never Alcohol Intake Frequency:: holidays/special occasions only Substance Use Type: marijuana *Occupational Status:: employed Housing: house Household Members: spouse *Travel in the last 8 weeks: None - Psychiatric History Pschychiatric History:: Reports:: Anxiety, Depression Family Hx:: Other
== END ==
PROVIDERS: Visit Provider Clinical Nurse Specialist Family Health
DX: M51.36 Other intervertebral disc degeneration, lumbar region (principal); M47.816 Spondylosis without myelopathy or radiculopathy, lumbar region; M54.02 Panniculitis affecting regions of neck and back, cervical region; M48.00 Spinal stenosis, site unspecified
CPT/HCPCS: 99212; G0463

== ENCOUNTER 2021-08-29 10:50 | Day surgery (SDC) | payer BC, MEDICAID, SELFPAY ==
[2021-08-29 10:56] VITALS: BP 139/92; BP 140/78; BP 142/79; PULSE 76; PULSE 79; PULSE 88; RESP 18; RESP 20; TEMP 36.9; O2SAT 100; BMI 29.2
--- NOTE | 2021-08-29 11:21 | P.PCN_ITS ---
- Procedure Date: 08/29/21 Time: 11:21 Anesthesiologist:: Ginger Garcia MD Complications:: None Pre-procedure Diagnosis:: Degenerative disease of lumbar spine with lumbar facet arthropathy and spondylosis Post-procedure Diagnosis:: Same Indications for Procedure:: This patient is a very pleasant 40-year-old white female who presents today with chronic low back pain related to the above diagnosis. She has tried and failed conservative treatment and oral pain medications and home stretching program for greater than 6 weeks. He receives undergone lumbar facet joint/medial branch bl ock injections at L4-L5 and L5-S1 got 70 to 80% pain relief for approximately 1 week. She states that she has been more functional since she underwent the injections and is able to experience more mobility as well. Her pain is since returned and she is requesting a repeat injection today. The plan for today is for the patient to undergo diagnostic lumbar facet joint/medial branch block injections at L4-L5 and L5-S1 bilaterally #2. Procedure Details:: Lumbar medial branch block Informed consent was obtained and the risks and benefits of the procedure was explained to the patient. The back was prepped using ChloraPrep. The skin and subcutaneous tissues were anesthetized using lidocaine. I placed 22-gauge spinal needles into the facet joint/medial branches of L3-L4, L4-L5 and L5-S1 bilaterally. Needle placement was confirmed with dye. After this we injected 3 mL bupivacaine 0.25% and Depo-Medrol into each facet joint/medial branch of L4- L5, L5-S1 bilaterally. We used a total of 80 mg Depo-Medrol for all 2 levels bilaterally. The patient tolerated the procedure well with no complications. Plan and Disposition:: We will follow-up in 2 weeks with this patient. Will reevaluate pain symptoms at that time.
[2021-08-29 11:54] VITALS: BP 146/94; PULSE 73; RESP 20; O2SAT 99
== END 2021-08-29 11:55 | disposition home or self-care (01) ==
LOC: SC.PAINP 10:51
PROVIDERS: PCP Emergency Medicine; Visit Provider Anesthesiology Pain Medicine
DX: M51.36 Other intervertebral disc degeneration, lumbar region (principal); M54.06 Panniculitis affecting regions of neck and back, lumbar region; M47.816 Spondylosis without myelopathy or radiculopathy, lumbar region; E78.5 Hyperlipidemia, unspecified; Z86.73 Personal history of transient ischemic attack (TIA), and cerebral infarction without residual deficits; K75.9 Inflammatory liver disease, unspecified; F41.9 Anxiety disorder, unspecified; F32.A Depression, unspecified; Z88.0 Allergy status to penicillin
CPT/HCPCS: 64493; 64494; J1040; Q9966

== ENCOUNTER → 2021-10-30 10:01 | Outpatient (POV) | payer BC, MEDICAID, SELFPAY ==
[2021-10-30 10:16] VITALS: BP 156/101; PULSE 94; RESP 19; TEMP 36.8; O2SAT 100; BMI 29.2
--- NOTE | 2021-10-30 11:39 | HMH.PAINSOAP ---
[facility] Pain Management SOAP Note Subjective:: Patient is a pleasant 40-year-old female who presents today for follow-up. Patient is currently being treated for degenerative disc disease of the lumbar spine, lumbar facet arthropathy, lumbar spondylosis. We have been managing this patient with injective therapy. Patient has had 2 rounds of bilateral diagnostic facet/medial branch block injections at L4-L5 and L5-S1 that provided 70 to 80% relief that lasted for 2 to 3 days. She is complaining of worsening pain on her lumbar spine today rates her pain as 4 out of 10. She has tried and failed conservative therapies such as oral medication, physical therapy, and home exercises for greater than 6 weeks. She is also prescribed tramadol 50 mg 3 times a day by our clinic. She is on Lyrica 150 mg 2 times a day that is prescribed by Dr. Us. Denies any side effects from these medications. Hank [phone] with an active morphine equivalent of 15. Since patient is on a scheduled medication, we will obtain a drug screen at her next appointment. From the patient's Drug screen on 05/09/21, she is positive for a non-prescribed methadone and also positive for THC. If the patient is positive for these at her next drug screen, we will not be able to continue her tramadol prescription. Review of Systems: General: No recent weight changes, no fever, no sleep disturbances Respiratory: No cough, no shortness of air, no recurring pulmonary infections Cardiovascular/peripheral vascular: No chest pain, no palpitations, no edema, no shortness of breath Gastrointestinal: No new onset incontinence, normal bowel movements reported Genitourinary: No new onset incontinence Musculoskeletal: Low back pain Psychiatric: [Normal mood/affect] Neurological: [Denies weakness in extremities], [denies balance issues] Objective:: Physical Exam: General: Alert and oriented x3, no acute distress, pleasant and cooperative Lungs: Respirations even and unlabored, symmetrical chest expansion Eyes: PERRL Musculoskeletal: Flexion and extension of lumbar [spine] somewhat guarded secondary to pain, [antalgic gait noted]; positive Gonzalez Neurological: Speech clear, no gross sensory deficit Assessment:: Degenerative disc disease of lumbar spine Lumbar spondylosis Lumbar facet arthropathy Plan:: Patient has had 2 successful diagnostic medial branch block at bilateral L4-L5 and L5-S1. We will schedule this patient for a therapeutic lumbar RFA bilaterally at L4-L5 and L5-S1. Risks and benefits of the procedure have been explained to the patient. Patient would like to proceed with the procedure. Patient has been instructed to contact the clinic with any concerns before the next appointment. Dr. Portillo has reviewed this note and agrees with this plan of care. This note was dictated using voice recognition software and make contain errors or omissions. [facility] History Medical History: Reports:: Anxiety, Cerebrovascular Accident, Depression, Gall Bladder Disease, Hepatitis, Hyperlipidemia Denies:: Diabetes Mellitus Type 1, Diabetes Mellitus Type 2, MRSA *Have you ever received a pneumonia vaccine?: No *Have you received a flu vaccine this season?: Yes Other Medical History: Reports: Arthritis, Other Other Surgeries: Yes: No Previous Surgery Amputation: No Fractures: No - *Social History Smoking Status: Never smoker Tobacco Type: cigarettes # Packs/Day (cigarettes): 1 Alcohol Intake: never Alcohol Intake Frequency:: holidays/special occasions only Substance Use Type: marijuana *Occupational Status:: employed Housing: house Household Members: spouse *Travel in the last 8 weeks: None - Psychiatric History Pschychiatric History:: Reports:: Anxiety, Depression Family Hx:: No significant family history
== END ==
PROVIDERS: Visit Provider Student in an Organized Health Care Education/Training Program
DX: M51.36 Other intervertebral disc degeneration, lumbar region (principal); M47.816 Spondylosis without myelopathy or radiculopathy, lumbar region; M54.06 Panniculitis affecting regions of neck and back, lumbar region
CPT/HCPCS: 99212; G0463

== ENCOUNTER 2021-12-30 09:45 | Day surgery (SDC) | payer BC, MEDICAID, SELFPAY ==
[2021-12-30 10:00] VITALS: BP 132/92; PULSE 70; RESP 17; TEMP 36.9; O2SAT 95; BMI 27.4
[2021-12-30 10:02] VITALS: BP 156/97; PULSE 72; RESP 20
[2021-12-30 10:19] VITALS: BP 115/77; PULSE 66; RESP 20; O2SAT 97
--- NOTE | 2021-12-30 10:58 | P.PCN_ITS ---
- Procedure Date: 12/30/21 Time: 10:58 Anesthesiologist:: Portillo Guajardo CRNA Complications:: None Pre-procedure Diagnosis:: Degenerative disc disease lumbar spine. Lumbar facet arthropathy. Multilevel lumbar spondylosis. Post-procedure Diagnosis:: Same Indications for Procedure:: Patient is a very pleasant 40-year-old female that comes to our clinic today for radiofrequency ablation L4-5, L5-S1 bilaterally. Patient had 70 to 80% improvement lasting 5 to 10 days after receiving lumbar medial branch block. She complains her low back pain is constant, dull, aching. She has difficulty with flexion and extension. We will proceed with radiofrequency ablation L4-5, L5-S1 bilaterally. Procedure Details:: Lumbar RFA None Pre-procedure Diagnosis: Degenerative disc disease of lumbar spine with lumbar spondylosis and facet arthropathy Post-procedure Diagnosis: Same Indications for Procedure: Patient is a pleasant 70-year-old white female who we are treating for low back pain with lumbar spondylosis and facet arthropathy. She is done well with medial branch blocks with 80% relief of her pain symptoms. She presents for radiofrequency ablation to the facet joint/medial branches of L4-5 and L5-S1 today. She has already had the right side done and is doing very well. She presents for the left side today. Procedure Details: Lumbar RFA Informed consent was obtained and the risk and benefits of the procedure was explained to the patient. Patient was placed prone on the procedure table. The patient was prepped and draped in sterile fashion. C-arm fluoroscopy was used to view the lumbar spine. The skin and subcutaneous tissues were anesthetized using lidocaine. I placed 20-gauge RF needles into the facet joints of L4-L5 and L5-S1 on the left side. We underwent sensory stimulation. There is good sensory stimulation at 0.8 V. We underwent motor stimulation. There is no motor stimulation at 2 V. We then anesthetized these levels with lidocaine and Depo- Medrol. I used a total of 40 mg Depo-Medrol for all 3 levels. I then burned all 2 levels of L4-5 and L5-S1 on the left side for 4 minutes at 80 ?C. Patient tolerated the procedure well with no complication. Plan and Disposition:: We will follow-up with this patient in 2 weeks. We will reevaluate her symptoms at that time. Plan and Disposition:: Patient was discharged without difficulty.
== END 2021-12-30 10:20 | disposition home or self-care (01) ==
LOC: SC.PAINP 09:46
PROVIDERS: PCP Emergency Medicine; Visit Provider Nurse Anesthetist, Certified Registered
DX: M51.36 Other intervertebral disc degeneration, lumbar region (principal); M47.816 Spondylosis without myelopathy or radiculopathy, lumbar region
CPT/HCPCS: 64635; 64636; J1040

== ENCOUNTER → 2022-01-19 10:41 | Outpatient (POV) | payer BC, MEDICAID, SELFPAY ==
[2022-01-19 11:55] VITALS: BP 163/88; PULSE 85; RESP 20; TEMP 37; O2SAT 96; BMI 28.3
--- NOTE | 2022-01-19 12:42 | HMH.PAINSOAP ---
[facility] Pain Management SOAP Note Subjective:: Patient is a pleasant 41-year-old female that presents today for follow-up from lumbar RFA on 12/30/2021. Patient states that she has had 40 to 50% improvement of her symptoms lasting for roughly 1 week with this ablation. Today she rates her pain a 5 out of 10. She states her pain is all in her low back and down her right leg to her toes. Patient denies any new trauma or injury to the site. She denies any change to the location or type of pain she experiences. Patient states she is unable to sit or walk for long periods of time. Her pain is aggravated by twisting movement as well as bending down and coming back up. She is currently taking Lyrica 150 mg twice a day by Dr. Us. We are also managing her pain with tramadol 50 mg 3 times a day. Patient denies any side effects from these medications. She states these medications are helping manage her pain. Patient is requesting a refill on her tramadol at today's visit and asking for an increase in the dosage. Patient is currently prescribed methadone. Her Hank is [id number]. It has been reviewed and appropriate. Review of Systems: General: No recent weight changes, no fever, no sleep disturbances Respiratory: No cough, no shortness of air, no recurring pulmonary infections Cardiovascular/peripheral vascular: No chest pain, no palpitations, no edema, no shortness of breath Gastrointestinal: No new onset incontinence, normal bowel movements reported Genitourinary: No new onset incontinence Musculoskeletal: Low back pain Psychiatric: [Normal mood/affect] Neurological: [Denies weakness in extremities], [denies balance issues] Objective:: Physical Exam: General: Alert and oriented x3, no acute distress, pleasant and cooperative Lungs: Respirations even and unlabored, symmetrical chest expansion Eyes: PERRL Musculoskeletal: Flexion and extension of lumbar [spine] somewhat guarded secondary to pain, [antalgic gait noted] Neurological: Speech clear, no gross sensory deficit PROCEDURE: MR LUMBAR SPINE WO CON CLINICAL INDICATION: back pain COMPARISON: MR MR LUMBAR SPINE WO CON from 10/11/2019 TECHNIQUE: Standard multiplanar multiecho sequences are performed without contrast. 3-D MIP and myelographic images are also rendered and reviewed FINDINGS: There is normal alignment. The spinal cord ends at the T12 level. T12-L1: Mild degenerative disc disease. L1-L2: Unremarkable. L2-L3: Unremarkable. L3-L4: Unremarkable. L4-5: Mild facet and ligamentum hypertrophy. L5-S1: Facet and ligamentum hypertrophic change with mild bilateral lateral recess narrowing. The facet hypertrophy does appear slightly worse on the left compared to the previous exam with slight increase in left lateral recess narrowing. Canal stenosis is present at this level at 10 mm. No extruded herniated disc. IMPRESSION: 1. L4-5: Mild facet and ligamentum hypertrophy. 2. L5-S1: Facet and ligamentum hypertrophic change with mild bilateral lateral recess narrowing. The facet hypertrophy does appear slightly worse on the left compared to the previous exam with slight increase in left lateral recess narrowing with canal stenosis 3. No extruded herniated disc Dictated by: Kong Grajeda MD 05/28/2021 10:41 Kong Grajeda MD in [place] 05/28/2021 10:41 Assessment:: Degenerative disc disease of lumbar spine with lumbar facet arthropathy, multilevel lumbar spondylosis Plan:: Patient continues to have significant pain in her low back. Patient has had improvement with the medial branch blocks and the lumbar RFA however it did not provide long-term relief. Patient did have point tenderness along her lumbar spine during today's exam. I have discussed with the patient regarding reviewing her last MRI results at our next appointment. We did discuss that she may find relief with an epidural injection. I will order the patient a compounding cream. I will leave her tr
== END ==
PROVIDERS: PCP Emergency Medicine; Visit Provider Nurse Practitioner Family
DX: M51.36 Other intervertebral disc degeneration, lumbar region (principal); M47.816 Spondylosis without myelopathy or radiculopathy, lumbar region
CPT/HCPCS: 99212; G0463

== ENCOUNTER → 2022-02-19 11:09 | Outpatient (POV) | payer MEDICAID, SELFPAY ==
[2022-02-19 11:22] VITALS: BP 130/92; PULSE 74; RESP 18; TEMP 36.9; O2SAT 98; BMI 27.4
--- NOTE | 2022-02-19 11:32 | A.OFFVIS_ITS ---
[facility] Pain Management SOAP Note Subjective:: Patient is a pleasant 41-year-old female who presents today for follow-up. We are currently treating the patient for degenerative disc disease of lumbar spine with lumbar facet arthropathy, multilevel lumbar spondylosis. Today the patient rates her pain a 3 out of 10. She states is primarily in her low back. Patient denies any new trauma or injury. She denies any change in the location or type of pain she experiences. Patient states that her previous visit on 01/19/2022 she had had the lumbar ablation however had not at that point noticed significant improvement. Patient states about a week later she really felt like the ablation results kicked in and provided significant improvement. Patient is currently prescribed pregabalin 150 mg twice a day by Dr. Us. She is also being managed with tramadol 50 mg 3 times a day. Patient denies any side effects from these medications. She states these medications are helping manage her pain. She is requesting a refill of her tramadol at today's visit. She recently was prescribed compounding cream that she states has provided s ignificant improvement of her pain symptoms in combination with her other medications. Her Hank is [id number]. It has been reviewed and appropriate. Review of Systems: General: No recent weight changes, no fever, no sleep disturbances Respiratory: No cough, no shortness of air, no recurring pulmonary infections Cardiovascular/peripheral vascular: No chest pain, no palpitations, no edema, no shortness of breath Gastrointestinal: No new onset incontinence, normal bowel movements reported Genitourinary: No new onset incontinence Musculoskeletal: Low back pain Psychiatric: [Normal mood/affect] Neurological: [Denies weakness in extremities], [denies balance issues] Objective:: Physical Exam: General: Alert and oriented x3, no acute distress, pleasant and cooperative Lungs: Respirations even and unlabored, symmetrical chest expansion Eyes: PERRL Musculoskeletal: Flexion and extension of lumbar [spine] somewhat guarded secondary to pain, [antalgic gait noted] Neurological: Speech clear, no gross sensory deficit Assessment:: Degenerative disc disease of lumbar spine with lumbar facet arthropathy, multilevel lumbar spondylosis Plan:: Patient has had significant improvement from her last visit following the lumbar ablation. At this time she does not need any additional injective therapy. I will send in a refill of her tramadol 50 mg 3 times a day and provide a 1 month supply of this medication. We will follow back up with the patient in 1 month for reevaluation of symptoms and medication refill. Patient has been advised of risks of oversedation with the prescribed medication. Narcan has been offered to the patient in the event of oversedation. Patient has been advised that a family member should also be educated regarding administration of Narcan. Patient has been instructed to contact the clinic with any concerns before the next appointment. Dr. Portillo has reviewed this note and agrees with this plan of care. This note was dictated using voice recognition software and make contain errors or omissions. PFSH PFS Social History Smoking Status: Current every day smoker tobacco type: cigarettes packs per day: 1 alcohol intake: never substance use type: marijuana current occupational status: other Travel in the last 8 weeks: None household members: spouse housing: house
== END | disposition home or self-care (01) ==
PROVIDERS: PCP Emergency Medicine; Visit Provider Nurse Practitioner Family
DX: M51.36 Other intervertebral disc degeneration, lumbar region (principal); M47.816 Spondylosis without myelopathy or radiculopathy, lumbar region; Z72.0 Tobacco use; Z79.899 Other long term (current) drug therapy
CPT/HCPCS: 99212; G0463

== ENCOUNTER → 2022-03-17 14:35 | Outpatient (CLI) | payer MEDICAID, SELFPAY ==
[2022-03-17 14:11] LABS: Basophils # 0.1 K/mm3 (0-0.2); Eosinophils # 0.3 K/mm3 (0.0-0.4); Eosinophils % 3.3 % (0.1-12.0); Hematocrit 37.3 % (37.0-47.0); Hemoglobin 12.2 g/dL (12.2-16.2); Lymphocytes # 2.3 K/mm3 (0.7-4.5); Lymphocytes % 24.6 % (10-50); Mean Corpuscular HGB Conc 32.5 g/dL (31.8-35.4); Mean Corpuscular Hemoglobin 30.3 pg (27.0-31.2); Mean Corpuscular Volume 93.1 fl (81-99); Mean Platelet Volume 8.1 fl (7.4-10.4); Monocytes # 0.5 K/mm3 (0.1-1.0); Monocytes % 5.4 % (1.7-9.3); Neutrophils # 6.1 K/mm3 (1.8-7.8); Neutrophils % 65.6 % (37.0-80.0); Platelet Count 363 K/mm3 (142-424); Red Blood Count 4.01 M/mm3 (4.20-5.40); Red Cell Distribution Width 13.8 % (11.5-17.5); White Blood Count 9.2 K/mm3 (4.8-10.8)
[2022-03-17 14:31] LABS: Alanine Aminotransferase 22 U/L (12-78); Albumin Level 3.6 g/dl (3.5-5.0); Albumin/Globulin Ratio 1.2 (1.1-1.8); Alkaline Phosphatase 103 U/L (38-126); Aspartate Amino Transferase 34 U/L (14-36); Blood Urea Nitrogen 4 mg/dl (7-17); Calcium 8.5 mg/dl (8.4-10.2); Carbon Dioxide 26 mmol/L (22.0-30.0); Chloride 103 mmol/L (98-107); Chol/HDL Ratio 10.9 (1-3.5); Cholesterol 250 mg/dl (140-200); Estimated Glomerular Filt Rate 111 ml/min (>60); GFR (African American) 135 ML/MIN (>60); Globulin 2.9 g/dL (1.3-3.2); Glucose 81 mg/dl (74-100); HDL Cholesterol 23 mg/dl (40-60); Sodium 138 mmol/L (136-145); Total Protein,Serum 6.5 g/dl (6.3-8.2)
[2022-03-17 14:35] LABS: Bilirubin,Total 0.1 mg/dl (0.2-1.3)
[2022-03-17 14:43] LABS: Direct LDL Cholesterol 58.11 mg/dL (100-129); Total Iron Binding Capacity 396 ug/dL (265-497)
[2022-03-17 14:49] LABS: 25-OH Vitamin D, Total 13.5 ng/mL (30-100)
[2022-03-17 15:02] LABS: Thyroid Stimulating Hormone 1.11 uIU/mL (0.465-4.68)
[2022-03-17 15:21] LABS: Vitamin B12 356 pg/mL (239-931)
[2022-03-17 15:28] LABS: Hemoglobin A1C 4.7 % (4.0-6.0)
[2022-03-17 18:46] LABS: Iron 41 ug/dL (37-170)
[2022-03-17 19:17] LABS: Triglycerides 1114 mg/dl (30-150)
== END ==
PROVIDERS: PCP Student in an Organized Health Care Education/Training Program; Visit Provider Student in an Organized Health Care Education/Training Program
DX: R53.83 Other fatigue (principal); R20.0 Anesthesia of skin; R20.2 Paresthesia of skin; E55.9 Vitamin D deficiency, unspecified
CPT/HCPCS: 80053; 80061; 82306; 82607; 83036; 83540; 83550; 84443; 85025

== ENCOUNTER → 2022-06-23 10:33 | Outpatient (CLI) | payer MEDICAID, SELFPAY ==
[2022-06-23 12:30] LABS: Creatine Kinase 164 U/L (30-135)
[2022-06-23 13:02] LABS: Thyroid Stimulating Hormone 2.17 uIU/mL (0.465-4.68)
[2022-06-23 13:05] LABS: Ferritin 11.6 ng/ml (6.24-137)
[2022-06-24 10:37] LABS: Homocyst(e)ine 8.9 umol/L (0.0-14.5)
[2022-06-24 14:17] LABS: Aldolase 5.2 U/L (3.3-10.3)
== END ==
PROVIDERS: PCP Emergency Medicine; Visit Provider Specialist
DX: E83.10 Disorder of iron metabolism, unspecified (principal); R53.1 Weakness; E74.02 Pompe disease
CPT/HCPCS: 36415; 82085; 82550; 82728; 82746; 83090; 84443

== ENCOUNTER → 2022-12-09 13:43 | Outpatient (CLI) | payer MEDICAID, SELFPAY ==
[2022-12-09 13:23] LABS: Basophils # 0.1 K/mm3 (0-0.2); Basophils % 0.3 % (0.1-2.0); Eosinophils # 0.3 K/mm3 (0.0-0.4); Eosinophils % 1.8 % (0.1-12.0); Hematocrit 41.2 % (37.0-47.0); Hemoglobin 13.5 g/dL (12.2-16.2); Lymphocytes # 2.2 K/mm3 (0.7-4.5); Mean Corpuscular HGB Conc 32.8 g/dL (31.8-35.4); Mean Corpuscular Hemoglobin 29.7 pg (27.0-31.2); Mean Corpuscular Volume 90.7 fl (81-99); Mean Platelet Volume 8.6 fl (7.4-10.4); Monocytes # 0.7 K/mm3 (0.1-1.0); Monocytes % 4.6 % (1.7-9.3); Neutrophils # 12.4 K/mm3 (1.8-7.8); Neutrophils % 79.3 % (37.0-80.0); Platelet Count 322 K/mm3 (142-424); Red Blood Count 4.55 M/mm3 (4.20-5.40); Red Cell Distribution Width 13.9 % (11.5-17.5); White Blood Count 15.7 K/mm3 (4.8-10.8)
[2022-12-09 13:25] LABS: MANUAL DIFFERENTIAL MANUAL DIFFERENTIAL (MANUAL DIFF)
[2022-12-09 13:50] LABS: Iron 61 ug/dL (37-170)
[2022-12-09 13:51] LABS: Alanine Aminotransferase 25 U/L (12-78); Albumin Level 4.1 g/dl (3.5-5.0); Albumin/Globulin Ratio 1.2 (1.1-1.8); Alkaline Phosphatase 105 U/L (38-126); Anion Gap 14.8 mEq/L (5-15); Aspartate Amino Transferase 31 U/L (14-36); Bilirubin,Total 0.2 mg/dl (0.2-1.3); Blood Urea Nitrogen 8 mg/dl (7-17); Calcium 8.8 mg/dl (8.4-10.2); Carbon Dioxide 26 mmol/L (22.0-30.0); Chloride 101 mmol/L (98-107); Estimated Glomerular Filt Rate 93 ml/min (>60); GFR (African American) 112 ML/MIN (>60); Globulin 3.3 g/dL (1.3-3.2); Glucose 97 mg/dl (74-100); HDL Cholesterol 37 mg/dl (40-60); Potassium 3.8 mmoL/L (3.5-5.1); Sodium 138 mmol/L (136-145); Total Protein,Serum 7.4 g/dl (6.3-8.2)
[2022-12-09 13:55] LABS: Chol/HDL Ratio 8.8 (1-3.5)
[2022-12-09 13:59] LABS: Total Iron Binding Capacity 354 ug/dL (265-497)
[2022-12-09 14:02] LABS: Cholesterol 334 mg/dl (140-200); Direct LDL Cholesterol 93.17 mg/dL (100-129); Triglycerides 877 mg/dl (30-150)
[2022-12-09 14:07] LABS: 25-OH Vitamin D, Total 17.4 ng/mL (30-100); Free T4 (Free Thyroxine) 0.76 ng/dl (0.78-2.19)
[2022-12-09 14:22] LABS: Thyroid Stimulating Hormone 2.36 uIU/mL (0.465-4.68)
[2022-12-09 14:26] LABS: Ferritin 18.8 ng/ml (6.24-137)
[2022-12-09 15:26] LABS: Eosinophils % 2 % (0-3); Lymphocytes % 13 % (10-50); Monocytes % 4 % (2-9); Neutrophils % 81 % (42-76); Platelet Estimate Normal; RBC Morphology Normal; Total Cells Counted 100
== END ==
PROVIDERS: PCP Emergency Medicine; Visit Provider Emergency Medicine
DX: E83.10 Disorder of iron metabolism, unspecified (principal); Z79.899 Other long term (current) drug therapy
CPT/HCPCS: 80053; 80061; 82306; 82728; 83540; 83550; 84439; 84443; 85007; 85025

== ENCOUNTER 2023-07-14 19:51 | Outpatient (CLI) | payer MEDICAID, SELFPAY ==
[2023-07-14 18:35] LABS: Basophils # 0.1 K/mm3 (0-0.2); Basophils % 0.9 % (0.1-2.0); Eosinophils # 0.3 K/mm3 (0.0-0.4); Eosinophils % 2.9 % (0.1-12.0); Hematocrit 43.1 % (37.0-47.0); Hemoglobin 14.3 g/dL (12.2-16.2); Lymphocytes # 2.3 K/mm3 (0.7-4.5); Lymphocytes % 26.2 % (10-50); Mean Corpuscular HGB Conc 33.2 g/dL (31.8-35.4); Mean Corpuscular Hemoglobin 31.1 pg (27.0-31.2); Mean Corpuscular Volume 93.8 fl (81-99); Mean Platelet Volume 9.2 fl (7.4-10.4); Monocytes # 0.4 K/mm3 (0.1-1.0); Monocytes % 4.8 % (1.7-9.3); Neutrophils # 5.7 K/mm3 (1.8-7.8); Neutrophils % 65.3 % (37.0-80.0); Platelet Count 279 K/mm3 (142-424); Red Blood Count 4.59 M/mm3 (4.20-5.40); Red Cell Distribution Width 14.1 % (11.5-17.5); White Blood Count 8.8 K/mm3 (4.8-10.8)
[2023-07-14 18:56] LABS: Alanine Aminotransferase 32 U/L (12-78); Albumin Level 4.3 g/dl (3.5-5.0); Albumin/Globulin Ratio 1.3 (1.1-1.8); Alkaline Phosphatase 91 U/L (38-126); Anion Gap 12.9 mEq/L (5-15); Aspartate Amino Transferase 31 U/L (14-36); Bilirubin,Total 0.3 mg/dl (0.2-1.3); Blood Urea Nitrogen 9 mg/dl (7-17); Calcium 9.3 mg/dl (8.4-10.2); Carbon Dioxide 22 mmol/L (22.0-30.0); Chloride 108 mmol/L (98-107); Estimated Glomerular Filt Rate 79 ml/min (>60); GFR (African American) 96 ML/MIN (>60); Globulin 3.2 g/dL (1.3-3.2); Glucose 62 mg/dl (74-100); HDL Cholesterol 34 mg/dl (40-60); Potassium 3.9 mmoL/L (3.5-5.1); Sodium 139 mmol/L (136-145); Total Protein,Serum 7.5 g/dl (6.3-8.2)
[2023-07-14 18:57] LABS: Triglycerides 428 mg/dl (30-150)
[2023-07-14 19:07] LABS: Direct LDL Cholesterol 155.97 mg/dL (100-129)
[2023-07-14 19:14] LABS: 25-OH Vitamin D, Total 14.4 ng/mL (30-100)
[2023-07-14 19:17] LABS: Chol/HDL Ratio 10.1 (1-3.5); Cholesterol 343 mg/dl (140-200)
[2023-07-16 07:42] LABS: HIV Screen 4th Generation wRfx Non Reactive (Non Reactive)
[2023-07-19 14:10] LABS: HBsAg Screen Negative (Negative); HCV Ab Reactive (Non Reactive); Hep A Ab, IGM Negative (Negative); Hep B Core Ab, IgM Positive (Negative)
== END 2023-07-14 23:59 ==
LOC: LAB.DROPOF 19:51
PROVIDERS: PCP Internal Medicine; Visit Provider Internal Medicine
DX: R53.83 Other fatigue (principal); E55.9 Vitamin D deficiency, unspecified; Z68.28 Body mass index [BMI] 28.0-28.9, adult
CPT/HCPCS: 80053; 80061; 80074; 82306; 85025; 86703; G0432

== ENCOUNTER 2023-08-18 12:49 | Outpatient (CLI) | payer MEDICAID, SELFPAY ==
[2023-08-03 16:02] VITALS: BMI 29.2
--- NOTE | 2023-08-18 13:05 | CT_ITS ---
APPROVED REPORT Inside Sales Specialist: CLINICAL INDICATION Chest Pain TECHNIQUE Image Acquisition: A 128 slice MDCT scanner (Sprout Routea View) was used for data acquisition. A noncontrast coronary calcium scan was performed. A CT attenuation threshold of 130 Hounsfield units (HU) was used for the detection of calcium in contiguous voxels of 1 sq mm in area to be counted as individual lesions. Bolus tracking in the ascending aorta with a threshold of 180 HU was performed. Immediately afterwards, ECG synchronized cardiac CT was then performed from the cardiac base to apex using retrospective gating with ECG tube current modulation. A total of 85 mL of Isovue 370 mg/mL contrast medium was administered at 5 mL/sec followed by a saline flush using a biphasic injection protocol. A tube voltage of 120 KVp was used. The patient received the following medications prior to the cardiac CT. 25 mg of oral metoprolol 15 mg of oral ivabradine 0.8 mg of sublingual nitroglycerin The average heart rate at the time of acquisition was 55 bpm and regular. Image Reconstruction Transaxial images were reconstructed at 0.67 mm slide thickness. Data was reviewed interactively on an advanced workstation capable of 2 and 3-dimensional displays in all conventional reconstruction formats, including multiplanar reformations, maximum intensity projections, curved multiplanar reformations, and volume rendered reconstructions. When applicable, selected routine images describing the relevant coronary anatomy and pathology were saved and sent to PACS. Complications None Technical Quality Overall image quality was good. Coronary artery opacification was adequate. Total DLP (Dose-Length Product) is 2997.9 mGy-cm. The reported value represents the total of one or more individual components during the CT acquisition of this date and at this time, and as such, the same value may appear in more than one CT report depending on the interpreting/reporting physicians. COMPARISON None FINDINGS CT Coronary Calcium Scoring LMA (Left Main Artery) = 0 LAD (Left Anterior Descending) = 0 LCX (Left Coronary Circumflex) = 0 RCA (Right Coronary Artery) = 0 Total Calcium Score = 0 using the AJ-130 method. The interpretation of the calcium heart score is based on the following continuum*: 0 = no calcified plaque detected (risk of coronary artery disease is very low ??? less than 5%) 1-10 = calcium detected in extremely minimal levels (risk of coronary diseases is still low ??? less than 10%) 11-100 = mild levels of plaque detected with certainty (mild or minimal narrowing of heart arteries is likely) 101-400 = definite,at least moderate levels of plaque detected (relatively high risk of a heart attack within 3-5 years) >401-999 = extensive levels of plaque detected (high risk of heart attack, high levels of vascular disease are present, high likelihood of at least one significant coronary narrowing) *The calcium heart score quantifies the burden of coronary calcification/plaque in the coronary arteries. The calcium heart score is not able to evaluate the presence or burden of non-calcified (i.e. soft) plaque. There is no identifiable calcification in the aortic valve, mitral annulus or mitral valve, pericardium, or myocardium. Coronary CT Angiography The coronary arterial system is right dominant. Quantitative Stenosis Grading: Left Main (LM): The left main originates normally from the left sinus of Valsalva. The LM bifurcates into the left anterior descending artery and left circumflex artery. The LM is patent with no evidence of atherosclerosis. Left Anterior Descending (LAD) and Diagonal Branches: The LAD gives off 2 diagonal branches. The LAD and its branches are patent with no evidence of atherosclerosis. There is no evidence of LAD-myocardial bridge. Left Circumflex (LCX) and Obtuse Marginals (OM): The LCX gives off 2 Obtuse Marginal (OM) branches. The LCX and its branches are patent with no evidence of atherosclerosis. Right Coronary Artery (RCA): The RCA originates normally from the right sinus of Valsalva. The RCA gives off a posterior descending artery (PDA) and posterolateral (PL) branches. The RCA and its branches are patent with no evidence of atherosclerosis. Non-Coronary Cardiac Findings: Analysis of the left ventricular (LV) structure and function was performed after 3-D reconstruction of the LV from axial images, with user-corrected automatic contouring for assessment of LV volumes and user-defined reconstruction from oblique planes for measurement of 3-D cardiac structure and function. -The left ventricle systolic function is normal. -There is no left atrial appendage filling defect. Two right pulmonary veins and two left pulmonary veins drain normally into the left atrium. -No pericardial thickening or calcification. -Central and branch pulmonary arteries in the [id number] are unremarkable. -Thoracic aorta within the visualized thoracic aortic-branches in the [id number] is unremarkable. Extracardiac Structures No significant extra-cardiac findings. Note, however, that this study is focused on the cardiac findings. IMPRESSION -No coronary calcification with an Agatston score = 0 using the AJ-130 method. -No evidence of significant flow-limiting atherosclerosis of the coronary arteries. -No evidence of coronary anomalies. -CAD-RADS 0. Management recommendations per ACC/AHA guidelines*, as clinically appropriate. *Recommendations: CAD RADS 0: Reassurance. Consider non-atherosclerotic causes of chest pain. CAD RADS 1: Consider non-atherosclerotic causes of chest pain. Consider preventive therapy and risk factor modification. CAD RADS 2: Consider non-atherosclerotic causes of chest pain. Consider preventive therapy and risk factor modification, particularly for patients with nonobstructive plaque in multiple segments. CAD RADS 3: Consider further functional testing. Consider symptom-guided anti-ischemic and preventive pharmacotherapy as well as risk factor modification per published guideline statements. CAD RADS 4A: Consider further functional testing or invasive coronary angiography with revascularization per published guideline statements. Consider symptom-guided anti-ischemic and preventive pharmacotherapy as well as risk factor modification per published guideline statements. CAD RADS 4B: Invasive coronary angiography recommended with revascularization per published guideline statements. Consider symptom-guided anti-ischemic and preventive pharmacotherapy as well as risk factor modification per published guideline statements. CAD RADS 5: Consider invasive angiography and/or viability assessment with revascularization per published guideline statements. Consider symptom-guided anti-ischemic and preventive pharmacotherapy as well as risk factor modification per published guideline statements. CRITICAL RESULT None COMMUNICATION Per this written report The coronary and cardiac findings of this CCTA were reviewed, reported, and signed by Harvey Kapoor MD ([employer] Feed Corn Operator) Conclusion Electronically signed by : Lyubov Kapoor MD 08/21/2023 00:42:17
[2023-08-18 13:15] VITALS: BP 138/95; PULSE 74; RESP 16; TEMP 36.6; O2SAT 98; BMI 29.2
[2023-08-18] MEDS: METOPROLOL TARTRATE 25MG TABLET 25 MG (13:30)
[2023-08-18] MEDS: IVABRADINE HCL 7.5MG TABLET PO (13:30)
[2023-08-18 13:35] LABS: Urine Pregnancy, HCG Qual. Negative (Negative)
[2023-08-18 13:46] LABS: Chloride 102 mmol/L (98-107); Potassium 3.6 mmoL/L (3.5-5.1); Sodium 136 mmol/L (136-145)
[2023-08-18 13:49] LABS: Anion Gap 9.6 mEq/L (5-15); Blood Urea Nitrogen 5 mg/dl (7-17); Calcium 8.4 mg/dl (8.4-10.2); Carbon Dioxide 28 mmol/L (22.0-30.0); Creatinine Clearance Estimated 122 mL/min (50-200); Estimated Glomerular Filt Rate 93 ml/min (>60); GFR (African American) 112 ML/MIN (>60); Glucose 85 mg/dl (74-100)
[2023-08-18 14:08] VITALS: BP 139/92; PULSE 60; RESP 18; O2SAT 97
[2023-08-18] MEDS: NITROGLYCERIN 0.4MG SL TABLET SL (14:08)
[2023-08-18 14:13] VITALS: BP 105/71; PULSE 57; O2SAT 99
[2023-08-18 14:18] VITALS: BP 99/71; PULSE 58; RESP 17; O2SAT 95
[2023-08-18] MEDS: SODIUM CHLORIDE 0.9% 10ML SYR (RAD ONLY) 10 ML IV (14:26)
[2023-08-18] MEDS: 0.9 % SODIUM CHLORIDE 50 ML VIAL 40 ML IV (14:26)
[2023-08-18] MEDS: IOPAMIDOL-370 (76%);100ML BOTTLE 85 ML IV (14:27)
== END 2023-08-18 14:30 | disposition home or self-care (01) ==
PROVIDERS: PCP Family Medicine; Visit Provider Nurse Practitioner Family
DX: R07.9 Chest pain, unspecified (principal); R06.00 Dyspnea, unspecified; R94.31 Abnormal electrocardiogram [ECG] [EKG]; R42 Dizziness and giddiness
CPT/HCPCS: 75571; 75574; 80048; 81025; Q9967

== ENCOUNTER 2024-02-14 10:39 | Outpatient (POV) | payer MEDICAID, SELFPAY ==
[2024-02-14 10:58] VITALS: BP 154/93; PULSE 72; RESP 18; O2SAT 100; BMI 28.5
--- NOTE | 2024-02-14 11:09 | A.OFFVIS_ITS ---
[facility] Disclaimer: The information contained in this section may have been updated after the patient was seen, as this information can be updated by other users. Medical History Abnormal electrocardiogram [ECG] [EKG] Surgical History History of dental surgery Family History Other Family history of diabetes mellitus Family history of lung cancer Social History Smoking Status: Current every day smoker tobacco type: cigarettes packs per day: 1 alcohol intake: never substance use type: marijuana current occupational status: unemployed Travel in the last 8 weeks: None household members: spouse housing: house marital status: PM Subjective & Objective Subjective Subjective:: Patient is a pleasant 43-year-old female who presents today for follow-up. Today she rates her pain a 6 out of 10. Patient does state from her last time here back in 2021 she still has chronic low back and leg symptoms. Patient does state that this is constant and does interfere with her ability perform activities of daily living such as cooking and cleaning. Patient has had injections and lumbar ablations in the past with only minimal to temporary relief. Patient does state that she is also experiencing neck pain that goes into her upper extremities. Patient states that Dr. Enciso was trying to order an MRI however insurance was wanting physical therapy and so she is currently doing that. Patient does take Lyrica and states that helps. Her Hank has been reviewed and is appropriate. Review of Systems: General: No recent weight changes, no fever, no sleep disturbances Respiratory: No cough, no shortness of air, no recurring pulmonary infections Cardiovascular/peripheral vascular: No chest pain, no palpitations, no edema, no shortness of breath Gastrointestinal: No new onset incontinence, normal bowel movements reported Genitourinary: No new onset incontinence Musculoskeletal: Low back pain, leg pain, neck pain, shoulder pain Psychiatric: [Normal mood/affect] Neurological: [Denies weakness in extremities], [denies balance issues] Pain at rest (0-10 scale): 6 Objective Objective:: Physical Exam: General: Alert and oriented x3, no acute distress, pleasant and cooperative Lungs: Respirations even and unlabored, symmetrical chest expansion Eyes: PERRL Musculoskeletal: Flexion and extension of lumbar [spine] somewhat guarded secondary to pain, [antalgic gait noted] Neurological: Speech clear, no gross sensory deficit Has patient had previous pain injection?: No Conservative treatment options previously tried: Home exercise plan Length of tr eatment: Longer than 6 weeks Meds Home Medications and Allergies Home Medications ?Medication ?Instructions ?Recorded ?Confirmed ?Type methadone 40 mg soluble tablet 120 mg PO DAILY . 06/15/22 01/18/24 History bupropion HCl 75 mg tablet 75 mg PO BID #60 tabs 04/23/23 01/18/24 Rx cholecalciferol (vitamin D3) 125 125 mcg PO DAILY 60 days #60 caps 07/14/23 01/18/24 Rx mcg (5,000 unit) capsule duloxetine 20 mg capsule,delayed 20 mg PO BID 30 days #60 caps 07/14/23 01/18/24 Rx release pregabalin 300 mg capsule (Lyrica) 300 mg PO BID #30 caps 07/14/23 01/18/24 Rx mexiletine 150 mg capsule 150 mg PO 01/18/24 01/18/24 History New Prescriptions to Start Prescriptions: Allergies Allergy/AdvReac Type Severity Reaction Status Date / Time Penicillins Allergy Intermediate Hives Verified 01/18/24 15:49 Assessment and Plan *Assessment and plan (1) Lumbar radiculopathy: Status: Acute Category: Medical Code(s): M54.16 - Radiculopathy, lumbar region (2) Degenerative joint disease (DJD) of lumbar spine: Status: Chronic Category: Medical Code(s): M47.816 - Spondylosis without myelopathy or radiculopathy, lumbar region Plan I did discuss with patient that we would be able to try a lumbar epidural whereas in the past she has had lumbar facets injections and ablations. Patient when she was last at our office did not have any complaints with leg pain. At this time she is not interested in injection therapy. I did also discuss with the patient in future she may benefit from stimulator her pump options. We will follow-up with this at future visits. Patient denies any heart or kidney issues. We will send in a 2-week supply of diclofenac 75 mg twice daily. Patient will return to clinic in 2 weeks for reevaluation of symptoms and plan of care. Patient did recently have a positive urine drug screen from her PCP that showed fentanyl in her system. We will not plan on doing any scheduled medications due to this. Patient has been instructed to contact the clinic with any concerns before the next appointment. Dr. Portillo has reviewed this note and agrees with this plan of care. This note was dictated using voice recognition software and make contain errors or omissions. All injections are used with Lidocaine or Bupivacaine and Depo Medrol.
== END 2024-02-14 23:59 | disposition home or self-care (01) ==
PROVIDERS: PCP Family Medicine; Visit Provider Nurse Practitioner Family
DX: M47.26 Other spondylosis with radiculopathy, lumbar region (principal); F17.210 Nicotine dependence, cigarettes, uncomplicated; F12.90 Cannabis use, unspecified, uncomplicated; Z73.89 Other problems related to life management difficulty
CPT/HCPCS: 99212; G0463

== ENCOUNTER 2024-04-10 14:58 | Outpatient (POV) | payer MEDICAID, SELFPAY ==
--- NOTE | 2024-04-10 15:09 | EXP.PAIN.SOA ---
[facility] Disclaimer: The information contained in this section may have been updated after the patient was seen, as this information can be updated by other users. Medical History Abnormal electrocardiogram [ECG] [EKG] Surgical History History of dental surgery Family History Other Family history of diabetes mellitus Family history of lung cancer Social History Smoking Status: Current every day smoker tobacco type: cigarettes packs per day: 1 alcohol intake: never substance use type: marijuana current occupational status: unemployed Travel in the last 8 weeks: None household members: spouse housing: house marital status: PM Subjective & Objective Subjective Subjective:: Patient is a pleasant 43-year-old female who presents today for follow-up. Today she rates her pain a 8 out of 10. She denies any new trauma or injury. She states she continues to have the chronic back pain that does go into her legs and interferes with her ability perform activities of daily living. Patient has had lumbar blocks and ablations in the past and at our last visit we did also discuss the possibility of lumbar epidural. She does state that she is still thinking on it. Patient is prescribed pregabalin from an outside provider. Patient was recently started on diclofenac 75 mg twice a day. She does state today that she did not notice any additional improvement with this medication. Her Hank has been reviewed and is appropriate. Review of Systems: General: No recent weight changes, no fever, no sleep disturbances Respiratory: No cough, no shortness of air, no recurring pulmonary infections Cardiovascular/peripheral vascular: No chest pain, no palpitations, no edema, no shortness of breath Gastrointestinal: No new onset incontinence, normal bowel movements reported Genitourinary: No new onset incontinence Musculoskeletal: Low back pain Psychiatric: [Normal mood/affect] Neurological: [Denies weakness in extremities], [denies balance issues] Pain at rest (0-10 scale): 8 Objective Objective:: Physical Exam: General: Alert and oriented x3, no acute distress, pleasant and cooperative Lungs: Respirations even and unlabored, symmetrical chest expansion Eyes: PERRL Musculoskeletal: Flexion and extension of lumbar [spine] somewhat guarded secondary to pain, [antalgic gait noted] Neurological: Speech clear, no gross sensory deficit Has patient had previous pain injection?: No Conservative treatment options previously tried: Home exercise plan Length of treatment: Longer than 12 weeks Meds Home Medications and Allergies Home Medications ?Medication ?Instructions ?Recorded ?Confirmed ?Type methadone 40 mg soluble tablet 120 mg PO DAILY . 06/15/22 02/14/24 History bupropion HCl 75 mg tablet 75 mg PO BID #60 tabs 04/23/23 02/14/24 Rx cholecalciferol (vitamin D3) 125 125 mcg PO DAILY 60 days #60 caps 07/14/23 02/14/24 Rx mcg (5,000 unit) capsule duloxetine 20 mg capsule,delayed 20 mg PO BID 30 days #60 caps 07/14/23 02/14/24 Rx release pregabalin 300 mg capsule (Lyrica) 300 mg PO BID #30 caps 07/14/23 02/14/24 Rx mexiletine 150 mg capsule 150 mg PO NEEDED PRN . 01/18/24 02/14/24 History diclofenac sodium 75 mg 75 mg PO BID #28 tabs 02/14/24 Rx tablet,delayed release New Prescriptions to Start Prescriptions: Allergies Allergy/AdvReac Type Severity Reaction Status Date / Time Penicillins Allergy Intermediate Hives Verified 01/18/24 15:49 Assessment and Plan *Assessment and plan (1) Lumbar radiculopathy: Status: Acute Category: Medical Code(s): M54.16 - Radiculopathy, lumbar region (2) Chronic lower back pain: Status: Chronic Qualifiers: Back pain laterality: midline Sciatica laterality: bilateral sciatica Sciatica presence: with sciatica Qualified Code(s): M54.41 - Lumbago with sciatica, right side; M54.42 - Lumbago with sciatica, left side; G89.29 - Other chronic pain Category: Medical Code(s): M54.50 - Low back pain, unspecified; G89.29 - Other chronic pain (3) Neck pain: Status: Acute Category: Medical Code(s): M54.2 - Cervicalgia Plan Patient states she has been tried on Celebrex in the past however did not recognize meloxicam. I did discuss with her that I will try a 2-week dose of this medication. We will also send in a 2-week dose of the baclofen 5 mg twice daily as needed. Patient was counseled to take these medications separately to make sure that she does not have a reaction. Patient will return to clinic in 2 weeks for reevaluation of symptoms and plan of care. Patient has been instructed to contact the clinic with any concerns before the next appointment. Dr. Portillo has reviewed this note and agrees with this plan of care. This note was dictated using voice recognition software and make contain errors or omissions. All injections are used with Lidocaine or Bupivacaine and Depo Medrol.
[2024-04-10 15:21] VITALS: BP 146/92; PULSE 74; RESP 18; O2SAT 100; BMI 29.2
== END 2024-04-10 23:59 | disposition home or self-care (01) ==
PROVIDERS: PCP Family Medicine; Visit Provider Nurse Practitioner Family
DX: M54.16 Radiculopathy, lumbar region (principal); M54.41 Lumbago with sciatica, right side; M54.42 Lumbago with sciatica, left side; G89.29 Other chronic pain; M54.2 Cervicalgia; F17.210 Nicotine dependence, cigarettes, uncomplicated; Z73.89 Other problems related to life management difficulty
CPT/HCPCS: 99212; G0463

== ENCOUNTER 2024-04-26 14:45 | Outpatient (POV) | payer MEDICAID, SELFPAY ==
[2024-04-26 15:02] VITALS: BP 123/83; PULSE 82; RESP 18; O2SAT 97; BMI 29.2
--- NOTE | 2024-04-26 15:05 | A.OFFVIS_ITS ---
[facility] Disclaimer: The information contained in this section may have been updated after the patient was seen, as this information can be updated by other users. Medical History Abnormal electrocardiogram [ECG] [EKG] Surgical History History of dental surgery Family History Other Family history of diabetes mellitus Family history of lung cancer Social History Smoking Status: Current every day smoker tobacco type: cigarettes packs per day: 1 alcohol intake: never substance use type: marijuana current occupational status: employed Travel in the last 8 weeks: None household members: spouse housing: house marital status: PM Subjective & Objective Subjective Subjective:: Patient is a pleasant 43-year-old female who presents today for follow-up. Today she rates her pain a 7 out of 10. At her last visit she was prescribed meloxicam and baclofen with a 2-week supply. Patient states that she did not particularly notice any additional changes. She states she still continues to have the chronic pain throughout her back and legs. Patient denies any new trauma or injury. Patient has been tried on Celebrex, meloxicam and diclofenac. Patient is currently prescribed pregabalin from an outside provider. Her Hank has been reviewed and is appropriate. Review of Systems: General: No recent weight changes, no fever, no sleep disturbances Respiratory: No cough, no shortness of air, no recurring pulmonary infections Cardiovascular/peripheral vascular: No chest pain, no palpitations, no edema, no shortness of breath Gastrointestinal: No new onset incontinence, normal bowel movements reported Genitourinary: No new onset incontinence Musculoskeletal: Low back pain, leg pain Psychiatric: [Normal mood/affect] Neurological: [Denies weakness in extremities], [denies balance issues] Pain at rest (0-10 scale): 7 Objective Objective:: Physical Exam: General: Alert and oriented x3, no acute distress, pleasant and cooperative Lungs: Respirations even and unlabored, symmetrical chest expansion Eyes: PERRL Musculoskeletal: Flexion and extension of lumbar [spine] somewhat guarded secondary to pain Neurological: Speech clear, no gross sensory deficit Has patient had previous pain injection?: No Conservative treatment options previously tried: Home exercise plan Length of treatment: Longer than 12 weeks Meds Home Medications and Allergies Home Medications ?Medication ?Instructions ?Recorded ?Confirmed ?Type methadone 40 mg soluble tablet 120 mg PO DAILY . 06/15/22 04/26/24 History bupropion HCl 75 mg tablet 75 mg PO BID #60 tabs 04/23/23 04/26/24 Rx cholecalciferol (vitamin D3) 125 125 mcg PO DAILY 60 days #60 caps 07/14/23 04/26/24 Rx mcg (5,000 unit) capsule duloxetine 20 mg capsule,delayed 20 mg PO BID 30 days #60 caps 07/14/23 04/26/24 Rx release pregabalin 300 mg capsule (Lyrica) 300 mg PO BID #30 caps 07/14/23 04/26/24 Rx mexiletine 150 mg capsule 150 mg PO NEEDED PRN . 01/18/24 04/26/24 History meloxicam 7.5 mg tablet 7.5 mg PO BID #28 tabs 04/10/24 04/26/24 Rx baclofen 5 mg tablet 5 mg PO TID #42 tabs 04/19/24 04/26/24 Rx diclofenac sodium 75 mg 75 mg PO BID #8 tabs 04/19/24 04/26/24 Rx tablet,delayed release methocarbamol 500 mg tablet 500 mg PO HS #30 tabs 04/26/24 Rx New Prescriptions to Start Prescriptions: methocarbamol Olga Warren Allergies Allergy/AdvReac Type Severity Reaction Status Date / Time Penicillins Allergy Intermediate Hives Verified 01/18/24 15:49 Assessment and Plan *Assessment and plan (1) Lumbar radiculopathy: Status: Acute Category: Medical Code(s): M54.16 - Radiculopathy, lumbar region (2) Chronic lower back pain: Status: Chronic Qualifiers: Back pain laterality: midline Sciatica laterality: bilateral sciatica Sciatica presence: with sciatica Qualified Code(s): M54.41 - Lumbago with sciatica, right side; M54.42 - Lumbago with sciatica, left side; G89.29 - Other chronic pain Category: Medical Code(s): M54.50 - Low back pain, unspecified; G89.29 - Other chronic pain Plan I did discuss with the patient due to not having any updated imaging since 2020 that I recommend we start there to see what exactly is going on. Patient agrees with this plan of care. I will order the patient an x-ray and MRI without contrast of her lumbar spine to follow. Patient did make mention that in the past she had been on [place] and it did help and whether that something we can try. I did recreation counselor her that we would not be able to do that medication at this time. I did also review over her previous notes from other providers and did see that she has had positive drug screens for fentanyl and methadone. Patient does have a history of drug use and for this reason we will not prescribe any scheduled medications for her. We will discontinue the meloxicam and baclofen. I will send in a prescription of methocarbamol 500 mg at bedtime. Due to the patient's current medication Skelaxin and tizanidine have potential side effects with her current medications. We will follow-up with her in 1 month for reevaluation of symptoms and plan of care. Patient has been instructed to contact the clinic with any concerns before the next appointment. Dr. Portillo has reviewed this note and agrees with this plan of care. This note was dictated using voice recognition software and make contain errors or omissions. All injections are used with Lidocaine or Bupivacaine and Depo Medrol.
== END 2024-04-26 23:59 | disposition home or self-care (01) ==
PROVIDERS: PCP Family Medicine; Visit Provider Nurse Practitioner Family
DX: M54.16 Radiculopathy, lumbar region (principal); M54.41 Lumbago with sciatica, right side; M54.42 Lumbago with sciatica, left side; G89.29 Other chronic pain; F17.210 Nicotine dependence, cigarettes, uncomplicated
CPT/HCPCS: 99212; G0463

== ENCOUNTER 2024-04-26 15:24 | Outpatient (CLI) | payer MEDICAID, SELFPAY ==
--- NOTE | 2024-04-26 15:29 | XR_ITS ---
FINAL REPORT CLINICAL HISTORY: LBP COMPARISON: None FINDINGS: 5 views of the lumbosacral spine were obtained. There is no acute fracture. There is no malalignment. The vertebrae are normal in height. The disc spaces are preserved. There is mild anterior osteophyte formation at L3-4 and L4-5 IMPRESSION: Degenerative changes without acute process. Reviewed, Interpreted and Dictated by Jorge Rivas MD Transcribed by Hina Mak Authenticated and [facility]
== END 2024-04-26 23:59 | disposition home or self-care (01) ==
LOC: RAD 15:26
PROVIDERS: Visit Provider Nurse Practitioner Family
DX: M54.50 Low back pain, unspecified (principal)
CPT/HCPCS: 72110

== ENCOUNTER 2024-06-15 15:15 | Outpatient (POV) | payer MEDICAID, SELFPAY ==
--- NOTE | 2024-06-15 15:45 | EXP.PAIN.SOA ---
[facility] Disclaimer: The information contained in this section may have been updated after the patient was seen, as this information can be updated by other users. Medical History Abnormal electrocardiogram [ECG] [EKG] Surgical History History of dental surgery Family History Other Family history of diabetes mellitus Family history of lung cancer Social History Smoking Status: Current every day smoker tobacco type: cigarettes packs per day: 1 alcohol intake: never substance use type: marijuana current occupational status: employed Travel in the last 8 weeks: None household members: spouse housing: house marital status: Have you lived/traveled outside [place] in past 30 days?: No Contact w/someone who lives/traveled outside [place] past 30 days?: No Exposure to someone with infectious disease in past 14 days?: No Do you have a fever (greater than 100.4 F or 38 C)?: No Have you tested positive for COVID-19: No Exposed to someone with COVID-19 in past 14 days?: No Do you have a sore throat?: No Do you have a cough?: No Do you have any weakness?: No Do you have any diarrhea?: No Are you experiencing any unusual bleeding?: No Do you have any muscle aches/pain?: No Do you have any abdominal pain?: No Are you experiencing loss of taste or smell?: No PM Subjective & Objective Subjective Subjective:: Patient is a pleasant 43-year-old female who presents today for follow-up. Today she rates her pain a 4 out of 10. She denies any new trauma or injury. She does state that she still has the chronic low back pain that does radiate down into her legs. Patient denies any other changes. She does state that the methocarbamol that we did send in seem to make no additional improvement. Patient has been tried on multiple medications including meloxicam, baclofen, methocarbamol and did have potential interactions with Skelaxin or tizanidine with her current medications. Patient does state the pain is constant and does interfere with her ability to perform activities of daily living such as cooking and cleaning. Patient is prescribed pregabalin from an outside provider. Patient is also here to go over her x-ray imaging finding. Her Hank has been reviewed and is appropriate. Review of Systems: General: No recent weight changes, no fever, no sleep disturbances Respiratory: No cough, no shortness of air, no recurring pulmonary infections Cardiovascular/peripheral vascular: No chest pain, no palpitations, no edema, no shortness of breath Gastrointestinal: No new onset incontinence, normal bowel movements reported Genitourinary: No new onset incontinence Musculoskeletal: Low back pain, bilateral leg pain Psychiatric: [Normal mood/affect] Neurological: [Denies weakness in extremities], [denies balance issues] Pain at rest (0-10 scale): 4 Objective Objective:: Physical Exam: General: Alert and oriented x3, no acute distress, pleasant and cooperative Lungs: Respirations even and unlabored, symmetrical chest expansion Eyes: PERRL Musculoskeletal: Flexion and extension of lumbar [spine] somewhat guarded secondary to pain, [antalgic gait noted] Neurological: Speech clear, no gross sensory deficit Has patient had previous pain injection?: No Conservative treatment options previously tried: Home exercise plan Length of treatment: Longer than 12-week Meds Home Medications and Allergies Home Medications ?Medication ?Instructions ?Recorded ?Confirmed ?Type methadone 40 mg soluble tablet 120 mg PO DAILY . 06/15/22 04/26/24 History bupropion HCl 75 mg tablet 75 mg PO BID #60 tabs 04/23/23 04/26/24 Rx cholecalciferol (vitamin D3) 125 125 mcg PO DAILY 60 days #60 caps 07/14/23 04/26/24 Rx mcg (5,000 unit) capsule duloxetine 20 mg capsule,delayed 20 mg PO BID 30 days #60 caps 07/14/23 04/26/24 Rx release pregabalin 300 mg capsule (Lyrica) 300 mg PO BID #30 caps 07/14/23 04/26/24 Rx mexiletine 150 mg capsule 150 mg PO NEEDED PRN . 01/18/24 04/26/24 History meloxicam 7.5 mg tablet 7.5 mg PO BID #28 tabs 04/10/24 04/26/24 Rx baclofen 5 mg tablet 5 mg PO TID #42 tabs 04/19/24 04/26/24 Rx diclofenac sodium 75 mg 75 mg PO BID #8 tabs 04/19/24 04/26/24 Rx tablet,delayed release methocarbamol 500 mg tablet 500 mg PO HS #30 tabs 04/26/24 Rx orphenadrine citrate 100 mg 100 mg PO BID #28 tabs 06/15/24 Rx tablet,extended release New Prescriptions to Start Prescriptions: orphenadrine citrate Olga Warren Allergies Allergy/AdvReac Type Severity Reaction Status Date / Time Penicillins Allergy Intermediate Hives Verified 01/18/24 15:49 Assessment and Plan *Assessment and plan (1) Lumbar radiculopathy: Status: Acute Category: Medical Code(s): M54.16 - Radiculopathy, lumbar region (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 I did also discuss with the patient that I will order her physical therapy for evaluation and treatment of her low back and leg symptoms. Patient has tried multiple muscle relaxers including baclofen, methocarbamol and is not able to be prescribed tizanidine or Skelaxin due to contraindications to her current ongoing medications. I will send in a 2-week supply of orphenadrine 100 mg twice daily. Patient will return to clinic in 1 month for reevaluation of symptoms and plan of care. Patient has been instructed to contact the clinic with any concerns before the next appointment. Dr. Portillo has reviewed this note and agrees with this plan of care. This note was dictated using voice recognition software and make contain errors or omissions. All injections are used with Lidocaine, Bupivacaine and Depo Medrol. Occasionally urine drug screen is needed to verify patient's compliance with our office pain contract. This is ordered based off specific treatments related to chronic pain with the potential to abuse certain medications.
[2024-06-15 15:47] VITALS: BP 153/96; PULSE 69; RESP 18; O2SAT 99; BMI 28.5
== END 2024-06-15 23:59 | disposition home or self-care (01) ==
PROVIDERS: Visit Provider Nurse Practitioner Family
DX: M54.50 Low back pain, unspecified (principal); G89.29 Other chronic pain; M47.26 Other spondylosis with radiculopathy, lumbar region; F17.210 Nicotine dependence, cigarettes, uncomplicated; Z73.89 Other problems related to life management difficulty
CPT/HCPCS: 99212; G0463

== ENCOUNTER 2024-08-28 15:20 | Outpatient (POV) | payer MEDICAID, SELFPAY ==
--- NOTE | 2024-08-28 15:35 | EXP.PAIN.SOA ---
[facility] Disclaimer: The information contained in this section may have been updated after the patient was seen, as this information can be updated by other users. Medical History Depression This depression is major. I think this is kept her from going to appointments please see noncompliance below. We we will continue the bupropion at 75 mg twice daily. Addition have added duloxetine 20 mg twice daily. I stop the tramadol. Tramadol does have norepinephrine serotoninergic activity and sodas duloxetine. So any benefit she may be getting from the tramadol but she certainly can get from the duloxetine and it may help her depression as well. Anxiety Abnormal electrocardiogram [ECG] [EKG] Surgical History History of dental surgery Family History Other Family history of diabetes mellitus Family history of lung cancer Social History Smoking Status: Current every day smoker tobacco type: cigarettes packs per day: 1 alcohol intake: never substance use type: marijuana current occupational status: employed Travel in the last 8 weeks: None household members: spouse housing: house marital status: PM Subjective & Objective Subjective Subjective:: Patient is a pleasant 43-year-old female who presents today for follow-up. Today she rates her pain a 6 out of 10. She denies any new trauma or injury from her last visit. She does state that she has been having more neck pain here lately that is worse with certain positioning such as twisting her head [id number] or looking up and down. Patient states that she has had neck pain years ago however it had gone away but does seem like it is starting to flare back up. Patient denies any recent imaging. Patient was prescribed a 2-week supply of orphenadrine 100 mg twice a day. She states she really did not notice any difference with this medication. Patient does state that she also needs a new physical therapy order as the last one we sent was . She is prescribed pregabalin 300 mg twice a day from an outside provider. Her Hakn has been reviewed and is appropriate. Review of Systems: General: No recent weight changes, no fever, no sleep disturbances Respiratory: No cough, no shortness of air, no recurring pulmonary infections Cardiovascular/peripheral vascular: No chest pain, no palpitations, no edema, no shortness of breath Gastrointestinal: No new onset incontinence, normal bowel movements reported Genitourinary: No new onset incontinence Musculoskeletal: Low back pain, bilateral leg pain Psychiatric: [Normal mood/affect] Neurological: [Denies weakness in extremities], [denies balance issues] Pain at rest (0-10 scale): 6 Objective Objective:: Physical Exam: General: Alert and oriented x3, no acute distress, pleasant and cooperative Lungs: Respirations even and unlabored, symmetrical chest expansion Eyes: PERRL Musculoskeletal: Flexion and extension of lumbar [spine] somewhat guarded secondary to pain, [antalgic gait noted] Neurological: Speech clear, no gross sensory deficit Has patient had previous pain injection?: No Conservative treatment options previously tried: Home exercise plan Length of treatment: Longer than 12 weeks Meds Home Medications and Allergies Home Medications ?Medication ?Instructions ?Recorded ?Confirmed ?Type methadone 40 mg soluble tablet 120 mg PO DAILY . 06/15/22 08/22/24 History pregabalin 300 mg capsule (Lyrica) 300 mg PO BID #30 caps 07/14/23 08/22/24 Rx venlafaxine 75 mg capsule,extended 75 mg PO 06/27/24 08/22/24 History release 24 hr buspirone 10 mg tablet 10 mg PO DAILY 08/09/24 08/22/24 History cariprazine 1.5 mg capsule 1.5 mg PO DAILY 08/09/24 08/22/24 History (Vraylar) duloxetine 20 mg capsule,delayed 20 mg PO DAILY 08/09/24 08/22/24 History release medroxyprogesterone 150 mg/mL 150 mg IM [id number] #1 mL 08/22/24 08/22/24 Rx intramuscular suspension celecoxib 100 mg capsule (Celebrex) 100 mg PO BID #28 caps 08/28/24 Rx New Prescriptions to Start Prescriptions: celecoxib [Celebrex] Olga Warren Allergies Allergy/AdvReac Type Severity Reaction Status Date / Time Penicillins Allergy Intermediate Hives Verified 08/22/24 11:07 Assessment and Plan *Assessment and plan (1) Lumbar radiculopathy: Status: Acute Category: Medical Code(s): M54.16 - Radiculopathy, lumbar region (2) Chronic lower back pain: Status: Chronic Qualifiers: Back pain laterality: midline Sciatica laterality: bilateral sciatica Sciatica presence: with sciatica Qualified Code(s): M54.41 - Lumbago with sciatica, right side; M54.42 - Lumbago with sciatica, left side; G89.29 - Other chronic pain Category: Medical Code(s): M54.50 - Low back pain, unspecified; G89.29 - Other chronic pain (3) Neck pain: Status: Acute Category: Medical Code(s): M54.2 - Cervicalgia Plan I will send in a new order for physical therapy for evaluation and treatment of her low back and bilateral leg symptoms. Due to the patient's new complaints of worsening neck pain I will order an x-ray of her cervical spine. Patient will also be ordered a compounded cream and she does deny any heart or kidney issues. I will send in a 2-week supply of Celebrex 100 mg twice daily. Patient will return to clinic in 2 weeks for reevaluation of symptoms and plan of care. Patient has been instructed to contact the clinic with any concerns before the next appointment. Dr. Portillo has reviewed this note and agrees with this plan of care. This note was dictated using voice recognition software and make contain errors or omissions. All injections are used with Lidocaine, Bupivacaine and Depo Medrol. Occasionally urine drug screen is needed to verify patient's compliance with our office pain contract. This is ordered based off specific treatments related to chronic pain with the potential to abuse certain medications.
[2024-08-28 15:59] VITALS: BP 138/89; PULSE 100; RESP 16; O2SAT 100; BMI 27.8
== END 2024-08-28 23:59 | disposition home or self-care (01) ==
PROVIDERS: PCP Family Medicine; Visit Provider Nurse Practitioner Family
DX: G89.29 Other chronic pain (principal); M54.16 Radiculopathy, lumbar region; M54.2 Cervicalgia; M54.41 Lumbago with sciatica, right side; M54.42 Lumbago with sciatica, left side; F17.210 Nicotine dependence, cigarettes, uncomplicated
CPT/HCPCS: 99212; G0463

== ENCOUNTER 2024-10-16 10:41 | Outpatient (POV) | payer MEDICAID, SELFPAY ==
--- NOTE | 2024-10-16 11:24 | EXP.PAIN.SOA ---
[facility] Disclaimer: The information contained in this section may have been updated after the patient was seen, as this information can be updated by other users. Medical History Depression This depression is major. I think this is kept her from going to appointments please see noncompliance below. We we will continue the bupropion at 75 mg twice daily. Addition have added duloxetine 20 mg twice daily. I stop the tramadol. Tramadol does have norepinephrine serotoninergic activity and sodas duloxetine. So any benefit she may be getting from the tramadol but she certainly can get from the duloxetine and it may help her depression as well. Anxiety Abnormal electrocardiogram [ECG] [EKG] Surgical History History of dental surgery Family History Other Family history of diabetes mellitus Family history of lung cancer Social History Smoking Status: Current every day smoker tobacco type: cigarettes packs per day: 1 alcohol intake: never substance use type: marijuana current occupational status: other Travel in the last 8 weeks?: None household members: spouse housing: house marital status: PM Subjective & Objective Subjective Subjective:: Patient is a pleasant 43-year-old female who presents today for follow-up. Today she rates her pain a 5 out of 10. She denies any new trauma or injury. At our last visit we had ordered her physical therapy for her low back and back symptoms as well as an x-ray imaging of her neck. Patient states that she has been doing the physical therapy however she did miss some appointments and thinks that she does need a new order for this. Patient also states that she did not end up doing the x-ray because she thought that insurance would deny it for lack of physical therapy. Patient does state that the compounded cream that we did order her is helping however she did not notice any improvement with the Celebrex. She denies any side effects. Patient is prescribed pregabalin from an outside provider. Her Hank has been reviewed and is appropriate. Review of Systems: General: No recent weight changes, no fever, no sleep disturbances Respiratory: No cough, no shortness of air, no recurring pulmonary infections Cardiovascular/peripheral vascular: No chest pain, no palpitations, no edema, no shortness of breath Gastrointestinal: No new onset incontinence, normal bowel movements reported Genitourinary: No new onset incontinence Musculoskeletal: Chronic neck and low back pain Psychiatric: [Normal mood/affect] Neurological: [Denies weakness in extremities], [denies balance issues] Pain at rest (0-10 scale): 5 Objective Objective:: Physical Exam: General: Alert and oriented x3, no acute distress, pleasant and cooperative Lungs: Respirations even and unlabored, symmetrical chest expansion Eyes: PERRL Musculoskeletal: Flexion and extension of lumbar [spine] somewhat guarded secondary to pain, [antalgic gait noted] Neurological: Speech clear, no gross sensory deficit Has patient had previous pain injection?: No Conservative treatment options previously tried: Home exercise plan Length of treatment: Longer than 12 weeks Meds Home Medications and Allergies Home Medications ?Medication ?Instructions ?Recorded ?Confirmed ?Type methadone 40 mg soluble tablet 120 mg PO DAILY . 06/15/22 08/28/24 History pregabalin 300 mg capsule (Lyrica) 300 mg PO BID #30 caps 07/14/23 08/28/24 Rx venlafaxine 75 mg capsule,extended 75 mg PO DIRECTED 06/27/24 08/28/24 History release 24 hr buspirone 10 mg tablet 10 mg PO DAILY 08/09/24 08/28/24 History cariprazine 1.5 mg capsule 1.5 mg PO DAILY 08/09/24 08/28/24 History (Vraylar) duloxetine 20 mg capsule,delayed 20 mg PO DAILY 08/09/24 08/28/24 History release medroxyprogesterone 150 mg/mL 150 mg IM [id number] #1 mL 08/22/24 08/28/24 Rx intramuscular suspension celecoxib 100 mg capsule (Celebrex) 100 mg PO BID #28 caps 08/28/24 Rx New Prescriptions to Start Prescriptions: Allergies Allergy/AdvReac Type Severity Reaction Status Date / Time Penicillins Allergy Intermediate Hives Verified 08/22/24 11:07 Assessment and Plan *Assessment and plan (1) Neck pain: Status: Acute Category: Medical Code(s): M54.2 - Cervicalgia (2) Lumbar radiculopathy: Status: Acute Category: Medical Code(s): M54.16 - Radiculopathy, lumbar region (3) Chronic lower back pain: Status: Chronic Qualifiers: Back pain laterality: midline Sciatica presence: with sciatica Sciatica laterality: bilateral sciatica Qualified Code(s): M54.41 - Lumbago with sciatica, right side; M54.42 - Lumbago with sciatica, left side; G89.29 - Other chronic pain Category: Medical Code(s): M54.50 - Low back pain, unspecified; G89.29 - Other chronic pain Plan I did discuss with the patient that I have no problems putting in a new order for her physical therapy and also including the chronic neck pain. I will also make sure that the cervical x-ray is still in the computer and does not need to be resubmitted. Patient will return to clinic in 1 month. Patient has been instructed to contact the clinic with any concerns before the next appointment. Dr. Portillo has reviewed this note and agrees with this plan of care. This note was dictated using voice recognition software and make contain errors or omissions. All injections are used with Lidocaine, Bupivacaine and dexamethasone. Occasionally urine drug screen is needed to verify patient's compliance with our office pain contract. This is ordered based off specific treatments related to chronic pain with the potential to abuse certain medications.
[2024-10-16 11:35] VITALS: BP 136/83; PULSE 61; RESP 18; O2SAT 100; BMI 28.5
== END 2024-10-16 23:59 | disposition home or self-care (01) ==
PROVIDERS: PCP Family Medicine; Visit Provider Nurse Practitioner Family
DX: M54.2 Cervicalgia (principal); M54.16 Radiculopathy, lumbar region; M54.41 Lumbago with sciatica, right side; M54.42 Lumbago with sciatica, left side; G89.29 Other chronic pain; F17.210 Nicotine dependence, cigarettes, uncomplicated
CPT/HCPCS: 99212; G0463

== ENCOUNTER 2024-11-16 10:50 | Outpatient (POV) | payer MEDICAID, SELFPAY ==
--- OUTSIDE RECORDS SUMMARY | 2024-10-09 11:30 | XMS_ITS | Encounter Summary ---
Author Organization [facility] Address [address] [place] [id number] Care Team Providers Care Information Security Analyst Name Role Phone Unknown, Attending Provider Primary Care Provide r Unavailable Source Comments This information has been disclosed to you from confidential records protectfrom disclosure by state law. You shall make no further disclosure of thisinformation without the specific, written, and informed release of theindividual to whom it pertains, or as otherwise permitted by law. A generalauthorization for the release of medical or other information is not sufficientfor the purposes of the release of HIV test results or diagnoses. [id number] Reason for Visit * Auth/Cert (Routine) Specialty Diagnoses / Procedures Referred By Jaki champion Referred To Contact Neurology [facility] [address] [facility] [address] [place] [address] Phone: tel: fax: Referral ID Status Reason Start Date Expiration Date Visits Re quested Visits Authorized [id number] 1 1 Encounter Details Date Type Department Care Team (Late st Contact Info) Description 10/09/2024 11:30 AM EDT Office Visit [facility] Neurology at [place] [id number] Awareness Card [facility] [address] [place] [place] [phone] Tanner Faustin MD [address] [place] [phone] Myotonia (Primary Dx); Restless legs syndrome Social History Tobacco Use Types Packs/Day Years Used Date Smoking Tobacco: Every Day Cigarettes Smokeless Tobacco: Never Alcohol Use Standard Drinks/Week Comments Never 0 (1 standard drink = 0.6 oz pur e alcohol) Comments Unknown Sex and Gender Information Value Date Recorded Sex Assigned at Not on file Legal Sex Female 12:21 PM EST Gender Identity Not on file Sexual Orientation Not on file documented as of this encounter Last Filed Vital Signs Vital Sign Reading Time Taken Comments Blood Pressure 135/90 10/09/2024 11:10 AM EDT Pulse 87 10/09/2024 11:10 AM EDT Temperature - - Respiratory Rate - - Oxygen Saturation 100% 10/09/2024 11:10 AM EDT Inhaled Oxygen Concentration 100% 10/09/2024 1 1:10 AM EDT Weight 70.8 kg (156 lb) 10/09/2024 11:10 AM EDT Height 157.5 cm (5' 2 ) 10/09/2024 11:10 AM EDT Body Mass Index 28.53 10/09/2024 11:10 AM EDT documented in this encounter Progress Notes * Tanner Faustin MD - 10/09/2024 11:30 AM EDT Images from the original note were not included. 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 Symptoms may be exacerbated by stress and anxiety. Previous mexiletine trial was ineffective. Restless legs syndrome: persists, ferritin level was 18 in March, insufficient for symptom management. Increasing ferritin to 70+ may alleviate symptoms. e. Chronic pain: management with methadone continues, would benefit from oversight by a pain clinic due to methadone use and regulatory considerations. Lumbar radiculopathy: pain c/w this in legs, but no weakness. Plan: # Myotonia congenita - Integrative medicine if available closer to her home. # RLS - Iron supplment - Recheck ferritin, iron studies after 2-3 months - If ferritin remains < 70, consider increasing iron dosag # Chronic pain - d/w PCP re: local pain clinic # Radic - Integrative medicine if available closer to her home. # Dispo - RTC annually Subjective: Zhanna Moreno is a 43 y.o. y.o. female who [facility] to [facility], last visit 04/03/2024 Tanner Faustin MD, for myotonia congenita. History of Present Illness She experiences increased muscle soreness and tension, particularly during episodes of anxiety. Hermuscles become tense and ache, and she attempts to alleviate the discomfort by walking. No new muscle weakness is reported. No issues with chewing, swallowing, weight changes, or vision problems. She has a history of a pinched nerve in her back on the left side, but there are no new symptoms orchanges in muscle weakness. She deals with restless legs, which have not changed. Her ferritin level was 18 in March. She hasnot been taking iron supplements recently. She is currently taking Lyrica for pain management but has stopped taking Cymbalta. She is also on methadone for pain, managed by her regular doctor. She lives in [place], [place], and finds it difficult to access certain treatments due to distance. 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 This slowly got worse over time.In the arms, she has noted difficulty lifting things above her head. In her hands, she has some stiffening, and sometimes difficult to relax. Some difficulties opening bottles or door knobs. The stiffness is the same during winter and summer time. In the legs, feels like her legs keep cramping. This usually happens after standing for a long time. Some difficulty going up and down stairs. No difficulties swallowing or chewing. No visual problems or ptosis. No dyspnea. She was in gymnastics before, no trouble with activity. In mid school, she had a lot of neck pain. EMG on 06/2022 showed diffuse denervation with some neurogenic units. CK only mildly elevated, GAA test for Pompe normal. [facility] comprehensive neuromuscular genetic testing 02/2023 with evidence of CLCN1 gene variant, which is indicative of myotonia congenita. 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 Interval history: Since last clinic visit, patient had started taking mexilitine for several months but found that itmade no difference in symptoms. Due to insurance issues, it was no longer covered so she stopped taking. Reports upper arm and hand weakness, most pronounced when reaching above shoulder level. Feels likethis improves with warming up and repetitive movements. Her legs will occasionally give out and shedoes endorse falls. Has burning and numbness from low back that radiates to soles, usually worst first thing in the morning. Improves slightly with walking but exacerbated by prolonged standing or activity. Taking cymbalta 40 mg daily and lyrica 300 mg BID but does not get complete pain relief with this regimen. Also endorse urge to move legs at night, usually when resting prior to bed. Moving legs improves this sensation. tells her that she constantly kicks her legs during sleep. Histories: Family history: - Maternal great aunt with history of ALS. - Mom has arthritis and complaints about stiffness and pain. - 1 sister (47yo): No problems - 1 daughter (3yo): Doing OK, no issues, meeting all developmental milestones Allergies: Penicillins Medications: Outpatient Encounter Medications as of 10/09/2024 Medication Sig Dispense Refill FLUoxetine (PROZAC) 60 mg tablet Take 1 tablet (60 mg total) by mouth daily. methadone HCl (METHADONE ORAL) Take 120 mg by mouth. pregabalin (LYRICA) 150 MG capsule Take 1 capsule (150 mg total) by mouth 2 times a day. buPROPion XL (WELLBUTRIN XL) 150 MG 24 hr tablet Take 1 tablet (150 mg total) by mouth daily. (Patient not taking: Reported on 10/09/2024) DULoxetine 40 mg CDRS Take 40 mg by mouth daily. (Patient not taking: Reported on 10/09/2024) mexiletine (MEXITIL) 150 MG capsule Take 1 capsule (150 mg total) by mouth 3 times a day. Take 1 pill for 1 week, then 1 pill twice a day for 1 week, then 1 pill three times a day. (Patient not taking: Reported on 10/09/2024) 90 capsule 5 traMADoL (ULTRAM) 50 mg tablet Take 1 tablet (50 mg total) by mouth every 6 hours as needed for Pain. (Patient not taking: Reported on 10/09/2024) No facility-administered encounter medications on file as of 10/09/2024. Objective: Blood pressure 135/90, pulse 87, height 5' 2 (1.575 m), weight 156 lb (70.8 kg), SpO2 100%. General Appearance: well appearing, no acute distress Pulm: no increased work of breathing Extr: No clubbing, cyanosis or edema MENTAL STATUS: Appearance: well-developed, well-nourished and in no acute distress Language/Speech: no aphasia and no dysarthria Atten/concentration: awake and alert CRANIAL NERVES: CN II: pupils equal, round, reactive to light CN III/IV/: extraocular movements intact and no ptosis, nystagmus, or strabismus CN V: facial sensation normal in , VII, VIII CN VII: facial motion intact/symmetric, eyebrow raise, eye closure, and cheek puff are strong. CN VIII: hearing intact to voice CN IX/X: No dysarthria, palate elevation symmetric, and voice not hoarse CN XI: sternocleidomastoid 5/5 symmetric strength and trapezius 5/5 symmetric strength CN XII: Tongue protrudes midline, bilateral tongue strength intact, no tongue fasciculations noted MOTOR: Bulk: normal Tone: normal in all 4 extremities Strength R/L MRC Upper Extremities Infraspinatus 4+/4+ Deltoid 4+/4+ Triceps 4+/4+ Biceps 5/5 Wrist extension 5/5 Wrist Flexion 5/5 FF 5/5 FE 5/5 FDI 4+/4 APB 4+/4 Lower Extremities Hip Flexion 5/5 Hip abduct 5/5 Hip adduct 5/5 Knee extension 5/5 Knee flexion 5/5 Ankle Dorsiflex 5/5 Ankle Plantarflex 5/5 Foot Invert 5/5 Foot eversion 5/5 No fasciculations noted. 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 Imaging: Emg 06/23/2022 Signature: Tanner Faustin MD, FAAN Diplomate, ABPN, Neurology Diplomate, ABPN, Clinical Neurophysiology Number and Complexity of Problems Addressed 2 or more stable chronic illnesses Risk of Complications and/or Morbidity or Mortality of Patient Management Moderate Portions of this note have been copied forward. I have reviewed and updated the HPI, histories, medications, allergies, review of systems, physical exam, data, assessment, and plan of the note so that it reflects the evaluation and management of the patient by me on 10/09/2024. documented in this encounter Plan of Treatment Not on file documented as of this encounter Visit Diagnoses Diagnosis Myotonia- Primary Spasm of muscle Restless legs syndrome Restless legs syndrome (RLS) documented in this encounter Care Teams Information Security Analyst Relationship Specialty Start Date End Date Unknown, Attending Provider PCP - General 08/12/22 documented as of this encounter
--- NOTE | 2024-11-16 11:12 | EXP.PAIN.SOA ---
[facility] Disclaimer: The information contained in this section may have been updated after the patient was seen, as this information can be updated by other users. Medical History Depression This depression is major. I think this is kept her from going to appointments please see noncompliance below. We we will continue the bupropion at 75 mg twice daily. Addition have added duloxetine 20 mg twice daily. I stop the tramadol. Tramadol does have norepinephrine serotoninergic activity and sodas duloxetine. So any benefit she may be getting from the tramadol but she certainly can get from the duloxetine and it may help her depression as well. Anxiety Abnormal electrocardiogram [ECG] [EKG] Surgical History History of dental surgery Family History Other Family history of diabetes mellitus Family history of lung cancer Social History Smoking Status: Current every day smoker tobacco type: cigarettes packs per day: 1 alcohol intake: never substance use type: marijuana current occupational status: other Travel in the last 8 weeks?: None household members: spouse housing: house marital status: PM Subjective & Objective Subjective Subjective:: Patient is a pleasant 43-year-old female who presents today for 1 month follow-up. She rates her pain a 6 out of 10. Patient at our last visit had gotten an order for physical therapy. Patient states that she has not yet started this. Patient states that she ended up missing their phone call and needs to call them back. Patient is prescribed compounded cream from our office and Celebrex. She states that she really did not notice much improvement with the Celebrex and has discontinued this. She does states she is still using the compounded cream. Patient is prescribed pregabalin from an outside provider. Her Hank has been reviewed and is appropriate. Review of Systems: General: No recent weight changes, no fever, no sleep disturbances Respiratory: No cough, no shortness of air, no recurring pulmonary infections Cardiovascular/peripheral vascular: No chest pain, no palpitations, no edema, no shortness of breath Gastrointestinal: No new onset incontinence, normal bowel movements reported Genitourinary: No new onset incontinence Musculoskeletal: Neck pain, low back pain Psychiatric: [Normal mood/affect] Neurological: [Denies weakness in extremities], [denies balance issues] Pain at rest (0-10 scale): 6 Objective Objective:: Physical Exam: General: Alert and oriented x3, no acute distress, pleasant and cooperative Lungs: Respirations even and unlabored, symmetrical chest expansion Eyes: PERRL Musculoskeletal: Flexion and extension of lumbar [spine] somewhat guarded secondary to pain, [antalgic gait noted] Neurological: Speech clear, no gross sensory deficit Has patient had previous pain injection?: No Conservative treatment options previously tried: Home exercise plan Length of treatment: Longer than 12 weeks Meds Home Medications and Allergies Home Medications ?Medication ?Instructions ?Recorded ?Confirmed ?Type methadone 40 mg soluble tablet 120 mg PO DAILY . 06/15/22 11/15/24 History pregabalin 300 mg capsule (Lyrica) 300 mg PO BID #30 caps 07/14/23 11/15/24 Rx venlafaxine 75 mg capsule,extended 75 mg PO DIRECTED 06/27/24 11/15/24 History release 24 hr buspirone 10 mg tablet 10 mg PO DAILY 08/09/24 11/15/24 History cariprazine 1.5 mg capsule 1.5 mg PO DAILY 08/09/24 11/15/24 History (Vraylar) medroxyprogesterone 150 mg/mL 150 mg IM [id number] #1 mL 08/22/24 11/15/24 Rx intramuscular suspension New Prescriptions to Start Prescriptions: Allergies Allergy/AdvReac Type Severity Reaction Status Date / Time Penicillins Allergy Intermediate Hives Verified 11/15/24 11:36 Assessment and Plan *Assessment and plan (1) Neck pain: Status: Acute Category: Medical Code(s): M54.2 - Cervicalgia (2) Lumbar radiculopathy: Status: Acute Category: Medical Code(s): M54.16 - Radiculopathy, lumbar region (3) Chronic lower back pain: Problem Comment: She has active follow up with PCP and pain management. Status: Chronic Qualifiers: Back pain laterality: midline Sciatica presence: with sciatica Sciatica laterality: bilateral sciatica Qualified Code(s): M54.41 - Lumbago with sciatica, right side; M54.42 - Lumbago with sciatica, left side; G89.29 - Other chronic pain Category: Medical Code(s): M54.50 - Low back pain, unspecified; G89.29 - Other chronic pain Plan We did review over the possibility of trying other anti-inflammatories however patient does state that she has tried the diclofenac and meloxicam. I will send in a 2-week dose of methocarbamol 500 mg 3 times daily as needed. Patient will return to clinic in 1 month following additional physical therapy for reevaluation of symptoms and plan of care. Patient has been instructed to contact the clinic with any concerns before the next appointment. Dr. Portillo has reviewed this note and agrees with this plan of care. This note was dictated using voice recognition software and make contain errors or omissions. All injections are used with Lidocaine, Bupivacaine and dexamethasone. Occasionally urine drug screen is needed to verify patient's compliance with our office pain contract. This is ordered based off specific treatments related to chronic pain with the potential to abuse certain medications.
[2024-11-16 11:53] VITALS: BP 126/87; PULSE 75; RESP 14; O2SAT 100; BMI 27.6
--- OUTSIDE RECORDS SUMMARY | 2024-11-16 13:00 | XMS_ITS | Patient Health Record ---
Author Organization [facility] Address [address] [facility] [address] [place] [address] Care Team Providers Care Board Layer Name Role Phone Phylicia Sahu Unavailable [phone] Allergies Allergen (clinical drug ingredient) Drug/Non Drug Allergy documented on EMR Reaction Allergy Type Onset Date Status PENICILLIN V POTASSIUM (PENICILLIN V POTASSIUM TAB Unspecified Drug Allergy 02/04/2018 Active Reason For Referral No Information Medications Medication SIG (Take, Route, Frequency, Duration) Notes Start Date End Date Status Gabapentin Active Methadone HCl Active PROzac Active Problems Problem Type SNOMED Code ICD Code Onset Dates Problem Status W/U Status Risk Notes Problem Third trimester (85185407) Supervision of other normal , third trimester (Z34.83) 020 Active confirmed Supervision of other normal , third trimester Problem state, 2 weeks (46842991) 2 weeks follow-up (Z39.2) 021 Active confirmed visit Problem Primigravida (432825528) Encounter for care in second trimester of first (Z34.02) 020 Active confirmed Encounter for supervision of normal first , second trimester Problem 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 Problem First trimester (38900802) Supervision of other normal , first trimester (Z34.81) 020 Active confirmed Supervision of other normal , first trimester Problem Gestation period, 26 weeks (50596241) 26 weeks gestation of (Z3A.26) 020 Active confirmed 26 weeks gestation of Problem *Infections of bladder in , third trimester (Code also weeks of gestation) (O23.13) Active confirmed Infections of bladder in , third trimester Problem *Supervision of elderly primigravida, first trimester (Code also - weeks of gestation Z3A) (O09.511) Active confirmed Advanced maternal age, primigravida, first trimester Problem *Anemia complicating , third trimester (Code also weeks of gestation) (O99.013) Active confirmed Anemia complicating , third trimester Problem Excessive vomiting (27408399) Excessive vomiting (O21.9) Active confirmed Nausea and vomiting in Problem Gynecological examination normal (24289645636466 4) Cervical smear, as part of routine gynecological examination (Z01.419) Active confirmed Annual without abnormal findings Problem Admission for routine ultrasound (Z36.89) Active confirmed Encounter for other specified screening Problem *Unspecified infection of urinary tract in , second trimester (Code also weeks of gestation) (O23.42) Active confirmed Unspecified infection of urinary tract in , second trimester Problem Opioid dependence in remission (060085501) Heroin use disorder, moderate, in sustained remission, on maintenance therapy, dependence (F11.21) Active confirmed Opioid dependence, in remission Plan Of Treatment No Information Medical (General) History Medical History History ICD Code anxiety depression Reticular neuropathy Vaginal bleeding Surgical History Surgery Date(Month/Year) None
--- OUTSIDE RECORDS SUMMARY | 2024-11-16 13:00 | XMS_ITS | Encounter Summary ---
Author Organization [facility] Address [address] [place] [address] Care Team Providers Care Trip Rider Name Role Phone Unknown, Attending Provider Primary [...] release of HIV test results or diagnoses. [id number] Reason for Referral * Physician/LALO (Routine) - Denied Specialty Diagnoses / Procedures Referred By Conttiesha t Referred To Contact Pain Medicine Diagnoses Myokiraia Tanner Faustin MD [address] [place] [phone] Phone: tel: fax: Referral ID Status Reason Start Date Expiration Date Visits Re quested Visits Authorized [id number] Denied 11/01/2024 04/30/2025 1 0 Scheduling Instructions For appointments, please call [phone]. Reason for Visit * Reason Comments Referral New Referral Request Encounter Details Date Type Department Care Team (Late st Contact Info) Description 10/31/2024 Telephone [facility] Neurology at [address] [place] [phone] Tanner Faustin MD [address] [place] [phone] Referral (New Referral Request/) Social History Tobacco Use Types Packs/Day Years [...] on file documented as of this encounter Miscellaneous Notes * Telephone Encounter - Jes Parry MA - 10/31/2024 11:02 AM EDT Pt calling Pt needs referral for pain management at Pt [phone]- call once placed in chart documented in this encounter Plan of Treatment Scheduled Referrals Name Type Priority Associated Diagnoses Orde r Schedule Pain Clinic Outpatient Referral Routine Myotonia Ordered: 11/01/2024 documented as of this encounter Visit Diagnoses Diagnosis Myotonia- Primary Spasm of muscle documented in this encounter Care Teams Trip Rider Relationship Specialty Start Date End Date Unknown, Attending Provider PCP - General 08/12/22 documented as of this encounter
--- OUTSIDE RECORDS SUMMARY | 2024-11-16 13:00 | XMS_ITS | Clinical Summary ---
Author Organization [facility] Address [address] [place] [address] Care Team Providers Care Dispensing Optician Name Role Phone Unknown, Attending Provider Primary Care Provide r Unavailable Source Comments This information has been disclosed to you from confidential records protectedfrom disclosure by state law. You shall make no further disclosure of thisinformation without the specific, written, and informed release of theindividual to whom it pertains, or as otherwise permitted by law. A generalauthorization for the release of medical or other information is not sufficientfor the purposes of therelease of HIV test results or diagnoses. [id number] Allergies Active Allergy Reactions Criticality Noted Date Comments Penicillins 02/15/2023 Medications methadone HCl (METHADONE ORAL) Take 120 mg by mouth. Active pregabalin (LYRICA) 150 MG capsule Take 1 capsule (150 mg total) by mouth 2 times a day. Active FLUoxetine (PROZAC) 60 mg tablet Take 1 tablet (60 mg total) by mouth daily. Active traMADoL (ULTRAM) 50 mg tablet Take 1 tablet (50 mg total) by mouth every 6 hours as needed for Pain. Active mexiletine (MEXITIL) 150 MG capsuleIndicati ons:Myotonia Take 1 capsule (150 mg total) by mouth 3 times a day. Take 1 pill for 1 week, then 1 pill twice a day for 1 week, then 1 pill three times a day. 90 capsule 5 Active Additional Information Patient not taking.Reported on 10/09/2024 buPROPion XL (WELLBUTRIN XL) 150 MG 24 hr tablet Take 1 tablet (150 mg total) by mouth daily. Active DULoxetine 40 mg CDRS Take 40 mg by mouth daily. Active Encounters Date Type Department Care Team Description 10/31/2024 Telephone [facility] Neurology at [facility] [place] [address] [place] [address] [address] [place] [address] Tanner Faustin MD Referral (New Referral Request/) 10/09/2024 11:30 AM EDT Office Visit [facility] Neurology at [facility] [place] [address] [facility] [address] [place] [phone] Tanner Faustin MD Myotonia (Primary Dx); Restless legs syndrome from Last 3 Months Social History Tobacco Use Types Packs/Day Years Used Date Smoking Tobacco: Every Day Cigarettes Smokeless Tobacco: Never Tobacco Cessation:Ready to Q uit: Not Asked; Counseling Given: Not Answered Alcohol Use Standard Drinks/Week Comments Never 0 (1 standard drink = 0.6 oz pur e alcohol) Comments Unknown Sex and Gender Information Value Date Recorded Sex Assigned at Not on file Legal Sex Female 12:21 PM EST Gender Identity Not on file Sexual Orientation Not on file Last Filed Vital Signs Vital Sign Reading [...] Mass Index 28.53 10/09/2024 11:10 AM EDT Plan of Treatment Health Maintenance Due Date Last Done Comments ASCVD Assessment 1982 Hepatitis C Screening (MyChart) 1982 Tobacco Cessation Readiness 1982 Depression Screening 2000 HIV Screening 2000 Immunization: Hepatitis B (1 of 3 - 19+ 3-dose series) 2001 Immunization: Pneumococcal ( 1 of 2 - PCV) 2001 Cervical Cancer Screening/Pa p Smear (MyChart) 2012 Mammogram (MyChart) 2022 Immunization: COVID-19 ( season) 2024 06/06/2021, 05/08/2021 Immunization: Influenza (MyC mandel) (Season Ended) 2025 03/17/2022, 04/15/2020, 03/21/2019, Additional history exists Immunization: DTaP/Tdap/Td ( 5 - Td or Tdap) 07/18/2030 07/18/2020, 10/08/2017, 05/19/2012, Additional history exists Insurance [facility] Care Teams Dispensing Optician Relationship Specialty Start Date End Date Unknown, Attending Provider PCP - General 08/12/22
--- OUTSIDE RECORDS SUMMARY | 2024-11-16 13:00 | XMS_ITS | Clinical Summary ---
Author Organization [facility] Address [address] [phone] Care Team Providers Care Banking Pin Adjuster Name Role Phone Norm Us MD Primary Care Provider [phone] Encounters Date Type Department Care Team Description 09/29/2024 [facility] [address] [place] [address] Trino Edwards MD Myotonic dystrophy, type 2 (CMS/HCC) (Primary Dx) from Last 3 Months Immunizations Immunization Administration Dates Next Due Influenza, Unspecified 03/20/2013 TD (adult), 2 Lf tetanus tox oid, preservative free, adsorbed 05/07/2012 Tdap 05/19/2012 Family History Medical History Relation Name Comments Anxiety disorder Father Diabetes Father Hypertension Father Anxiety disorder Mother Arthritis Mother Coronary artery disease Mother Hypertension Mother Stroke Mother Bone cancer Other 1 Cancer Other 2 Diabetes Other 3 Lung cancer Other 4 Skin cancer Other 5 Anxiety disorder Sister 1 Hypertension Sister 2 Relation Name Status Comments Father Mother Other 1 Other 2 Other 3 Other 4 Other 5 Sister 1 Sister 2 Social History Tobacco Use Types Packs/Day Years Used Date Smoking Tobacco: Every Day Alcohol Use Standard Drinks/Week Comments Yes 0 (1 standard drink = 0.6 oz pur e alcohol) Alcoholic Drinks/day: Alcohol Comments Unknown Sex and Gender Information Value Date Recorded Sex Assigned at Not on file Legal Sex Female 6:03 PM EDT Gender Identity Not on file Sexual Orientation Not on file Plan of Treatment Health Maintenance Due Date Last Done Comments [facility]-Depression Screening 1982 [facility]-/Child/Adol SDOH Screenings 1982 [facility]-Varicella Vaccines (1 of 2 - 13+ 2-dose series) 11/21/1995 HPV Vaccines (1 - 3-dose series) 1997 [facility]- SDOH Screenings 2000 [facility]-Adult SDOH Screenings 2000 [facility]-Hepatitis B Vaccines (1 of 3 - 19+ 3-dose series) 2001 [facility]-Pap Smear 11/30/2015 11/29/2012 [facility]-Cervical Cancer Screening 11/29/2017 [facility]-HPV/Cotest 11/29/2017 11/29/2012 [id number] Vaccine (3 - season) 2024 06/06/2021, 05/08/2021 [facility]-Influenza Vaccine (Season Ended) 2025 03/20/2013 [facility]-DTaP,Tdap,and Td Vaccines (5 - Td or Tdap) 07/18/2030 07/18/2020, 10/08/2017, 05/19/2012, Additional history exists [facility]-Zoster Vaccines (1 of 2) 2032 [facility]-HIB Vaccines Aged Out No longer e ligible based on patient's age to complete this topic [facility]-Hepatitis A Vaccines Aged Out No longer eligible based on patient's age to complete this topic [facility]-IPV Vaccines Aged Out No longer e ligible based on patient's age to complete this topic [facility]-Pneumococcal Vaccine: Pediatrics (0 to 5 Years) and At-Risk Patients (6 to 49 Years) Aged Out No longer eligible based on patient's age to complete this topic [facility]-Rotavirus Vaccines Aged Out No lo nger eligible based on patient's age to complete this topic Procedures Procedure Name Priority Date/Time Associated Diagnosis Comments CYTO DATA CONVERSION Routine 11/29/2012 12:00 AM EDT from Last 3 Months or Most Recently Relevant to Health Maintenance Results * (ABNORMAL) Cytology (11/29/2012 12:00 AM EDT) 11/29/2012 11/30/2012 12: 25 PM EDT Narrative [facility] - 12/02/2012 9:01 AM EDT [facility] MR #: [id number] [facility] [place] [address] 1980 (Age: 32) FW Collect Date: 11/29/2012 00:00 Receipt Date: 11/30/2012 12:25 Page 1 DEPARTMENT OF PATHOLOGY AND LABORATORY MEDICINE CYTOPATHOLOGY REPORT Email: [email or web address] ATTENDING MD/Practitioner: MD Baldomero Service: [place] Location: [facility] Reported: 12/02/2012 09:01 Collected: 11/29/2012 00:00 INTERPRETATION A. THIN PREP (CERVICAL/VAGINAL): LOW GRADE SQUAMOUS INTRAEPITHELIAL LESION. SATISFACTORY FOR EVALUATION; ENDOCERVICAL/ TRANSFORMATION ZONE COMPONENT PRESENT. Slide scanned and imaged by [employer] ThinPrep Imaging System with manual review of all selected galdamez. Consider diagnostic follow-up studies (see www.asccp.org). Follow-up biopsies in women with LSIL on cytology may detect high grade lesions in up to 15-20% of patients. Electronically Signed Out JUAN Roman([facility]) Ivana Leyva MD Cervical cytology is a screening test primarily for squamous cancers and precursors and has associated false negative and positive results. New technologies such as liquid based sampling may decrease but will not eliminate all false negative results. Regular screening and follow-up of unexplained clinical signs and symptoms are recommended to minimize false negative results. Please see the ASCCP website (www.asccp.org) for followup recommendations. If HPV testing was requested, correlation with the results is suggested (please call Microbiology at [phone] for results). CLINICAL INFORMATION: Menstrual History: Cyclic Date of Last Menstrual Period: 11/19/12 SPECIMEN DESCRIPTION: A: THIN PREP (CERVICAL/VAGINAL) THIN PREP PROCESS CELLULAR ENHANCEMENT ICD: V76.2 CERVIX, SPECIAL SCREENING FOR MALIGNANT NEOPLASM 795.03 (LGSIL) PAPANICOLAOU SMEAR OF CERVIX W/LOW GRADE SQUAMOUS INTRAEPITHELIAL LESION F: A; RT IMAGE 48923, 10370 C\V (PO) SNOMED CODES: A; [id number] [id number] M-[id number] In cases where a pathologist has signed out the report, the service has been rendered in part by a resident. The signing pathologist has performed and is responsible for the reported pathologic evaluation. Elena Manrique MD LAB PATHOLOGY [facility] Final Result [facility] from Last 3 Months or Most Recently Relevant to Health Maintenance Care Teams Banking Pin Adjuster Relationship Specialty Start Date End Date Norm Us MD [address] [place] [address] PCP - General 10/18/20
--- OUTSIDE RECORDS SUMMARY | 2024-11-16 13:00 | XMS_ITS | Encounter Summary ---
Author Organization [facility] Address [address] [id number] Care Team Providers Care Die Cast Supervisor Name Role Phone Norm Us MD Primary Care Provider [phone] Reason for Referral * Consultation (Routine) - Authorized Specialty Diagnoses / Procedures Referred By Contac t Referred To Contact Neurosurgery Diagnoses Myotonic dystrophy, type 2 (CMS/HCC) Trino Edwards MD [address] [address] Phone: tel: fax: Referral ID Status Reason Start Date Expiration Date Visits Requested Visits Authorized [id number] Authorized Specialty Services Required 09/29/2024 03/31/2026 1 1 Encounter Details Date Type Department Care Team (Late st Contact Info) Description 09/29/2024 [facility] [address] [place] [phone] Trino Edwards MD [address] [place] [address] Myotonic dystrophy, type 2 (CMS/HCC) (Primary Dx) Social History Tobacco Use Types Packs/Day Years [...] on file documented as of this encounter Plan of Treatment Scheduled Referrals Name Type Priority Associated Diagnoses Order Schedule Ambulatory Referral to Neurosurgery Outpatient Referral Routine Myotonic dystrophy, type 2 (CMS/HCC) Expected: 09/29/2024 (Approximate), Expires: 03/31/2026 documented as of this encounter Visit Diagnoses Diagnosis Myotonic dystrophy, type 2 (CMS/HCC)- Primary documented in this encounter Care Teams Die Cast Supervisor Relationship Specialty Start Date End Date Norm Us MD [address] [place] [address] PCP - General 10/18/20 documented as of this encounter
== END 2024-11-16 23:59 | disposition home or self-care (01) ==
PROVIDERS: PCP Family Medicine; Visit Provider Nurse Practitioner Family
DX: M54.2 Cervicalgia (principal); M54.41 Lumbago with sciatica, right side; M54.42 Lumbago with sciatica, left side; G89.29 Other chronic pain; Z79.1 Long term (current) use of non-steroidal anti-inflammatories (NSAID); Z79.899 Other long term (current) drug therapy
CPT/HCPCS: 99212; G0463

== ENCOUNTER 2024-12-21 14:27 | Outpatient (POV) | payer MEDICAID, SELFPAY ==
--- OUTSIDE RECORDS SUMMARY | 2024-12-21 14:30 | XMS_ITS | Encounter Summary ---
Author Organization [facility] Address [address] [phone] Care Team Providers Care Utility Driver Name Role Phone Norm Us MD Primary Care Provider [phone] Reason for Referral * Consultation (Routine) - Authorized Specialty Diagnoses / Procedures Referred By Contac t Referred To Contact Neurosurgery Diagnoses Myotonic dystrophy, type 2 (CMS/HCC) Trino Edwards MD [address] [address] Phone: tel: fax: Referral ID Status Reason Start Date Expiration Date Visits Requested Visits Authorized [id number] Authorized Specialty Services Required 09/29/2024 03/31/2026 1 1 Encounter Details Date Type Department Care Team (Late st Contact Info) Description 09/29/2024 [facility] [address] [place] [address] Trino Edwards MD [address] [phone] Myotonic dystrophy, type 2 (CMS/HCC) (Primary Dx) [...] as of this encounter Plan of Treatment Upcoming Encounters Date Type Department Care Team (Late st Contact Info) Description 04/30/2025 10:00 AM EST Consult [facility] [address] [facility] [place] [address] Markel Siddiqui MD [address] [place] [address] Scheduled Referrals Name Type Priority Associated Diagnoses Order Schedule Ambulatory Referral to Neurosurgery Outpatient Referral Routine Myotonic dystrophy, type 2 (CMS/HCC) Expected: 09/29/2024 (Approximate), Expires: 03/31/2026 documented as of this encounter Visit Diagnoses Diagnosis Myotonic dystrophy, type 2 (CMS/HCC)- Primary documented in this encounter Care Teams Utility Driver Relationship Specialty Start Date End Date Norm Us MD [address] [place] [address] PCP - General 10/18/20 documented as of this encounter
--- OUTSIDE RECORDS SUMMARY | 2024-12-21 14:30 | XMS_ITS | Encounter Summary ---
Author Organization [facility] Address [address] [place] [address] Care Team Providers Care Instrumentation Controls Engineer Name Role Phone Unknown, Attending Provider Primary [...] release of HIV test results or diagnoses. [id number] Reason for Referral * Physician/LALO (Routine) - Denied Specialty Diagnoses / Procedures Referred By Conttiesha t Referred To Contact Pain Medicine Diagnoses Myokiraia Tanner Faustin MD [address] [place] [phone] Phone: tel: fax: Referral ID Status Reason Start Date Expiration Date Visits Re quested Visits Authorized [id number] Denied 11/01/2024 04/30/2025 1 0 Scheduling Instructions For appointments, please call [phone]. Reason for Visit * Reason Comments Referral New Referral Request Encounter Details Date Type Department Care Team (Late st Contact Info) Description 10/31/2024 Telephone [facility] Neurology at [address] [place] [phone] Tanner Faustin MD [address] [place] [phone] Referral (New Referral Request/) Social History [...] needs referral for pain management at Pt [phone]- call once placed in chart documented in this encounter Plan of Treatment Scheduled Referrals Name Type Priority Associated Diagnoses Orde r Schedule Pain Clinic Outpatient Referral Routine Myotonia Ordered: 11/01/2024 documented as of this encounter Visit Diagnoses Diagnosis Myotonia- Primary Spasm of muscle documented in this encounter Care Teams Instrumentation Controls Engineer Relationship Specialty Start Date End Date Unknown, Attending Provider PCP - General 08/12/22 documented as of this encounter
--- OUTSIDE RECORDS SUMMARY | 2024-12-21 14:30 | XMS_ITS | Clinical Summary ---
Author Organization [facility] Address [address] [place] [address] Care Team Providers Care Employer Relations Representative Name Role Phone Unknown, Attending Provider Primary [...] therelease of HIV test results or diagnoses. [id number] Allergies Active Allergy Reactions Criticality Noted [...] Type Department Care Team Description 10/31/[address] [facility] Neurology at [facility] [place] [address] [place] [address] [address] [place] [address] Tanner Faustin MD Referral (New Referral Request/) 10/09/2024 11:30 AM EDT Office Visit [facility] Neurology at [facility] [place] [address] [facility] [address] [place] [phone] Tanner Faustin MD Myotonia (Primary Dx); Restless [...] 2024 06/06/2021, 05/08/2021 Immunization: Influenza (MyC mandel) (#1) 2025 03/17/2022, 04/15/2020, 03/21/2019, Additional history exists Immunization: DTaP/Tdap/Td ( 5 - Td or Tdap) 07/18/2030 07/18/2020, 10/08/2017, 05/19/2012, Additional history exists Insurance [facility] Care Teams Employer Relations Representative Relationship Specialty Start Date End Date Unknown, Attending Provider PCP - General 08/12/22
--- OUTSIDE RECORDS SUMMARY | 2024-12-21 14:30 | XMS_ITS | Clinical Summary ---
Author Organization Healthcare Address [address] [place] [address] Care Team Providers Care Supervisor Metal Placing Name Role Phone Norm Us MD Primary Care Provider [phone] Encounters Date Type Department Care Team Description 09/29/2024 [facility] [address] [place] [address] Trino Edwards MD Myotonic dystrophy, type 2 [...] Orientation Not on file Plan of Treatment Upcoming Encounters Date Type Department Care Team ([facility] st Contact Info) Description 04/30/2025 10:00 AM [facility] [address], [address] [place] [address] Markel Siddiqui MD [address] [place] [address] Health Maintenance Due Date Last Done Comments [facility]-Depression Screening 1982 [facility]-Infant/Child/Adol SDOH Screenings 1982 [facility]-Varicella Vaccines (1 of 2 - 13+ 2-dose series) 11/21/1995 HPV Vaccines (1 - 3-dose series) 1997 [facility]- SDOH Screenings 2000 [facility]-Adult SDOH Screenings 2000 [facility]-Hepatitis B Vaccines (1 of 3 - 19+ 3-dose series) 2001 [facility]-Pap Smear 11/30/2015 11/29/2012 [facility]-Cervical Cancer Screening 11/29/2017 [facility]-HPV/Cotest 11/29/2017 11/29/2012 [id number] Vaccine (3 - season) 2024 06/06/2021, 05/08/2021 [facility]-Influenza Vaccine (#1) 2025 03/20/2013 [facility]-DTaP,Tdap,and Td Vaccines (5 - [...] Narrative SUNQUEST - 12/02/2012 9:01 AM EDT [facility] MR #: [id number] [facility] [address] [place], [place] [address] 1980 (Age: 32) FW Collect Date: 11/29/2012 00:00 Receipt Date: 11/30/2012 12:25 Page 1 DEPARTMENT OF PATHOLOGY AND LABORATORY MEDICINE CYTOPATHOLOGY REPORT Email: [email or web address] ATTENDING MD/Practitioner: MD Baldomero [facility] Location[facility] Reported: 12/02/2012 09:01 Collected: 11/29/2012 00:00 INTERPRETATION A. THIN PREP (CERVICAL/VAGINAL): LOW GRADE SQUAMOUS INTRAEPITHELIAL LESION. SATISFACTORY FOR EVALUATION; ENDOCERVICAL/ TRANSFORMATION ZONE COMPONENT PRESENT. Slide scanned and imaged by [employer] ThinPrep Imaging System with manual review of all selected galdamez. Consider diagnostic follow-up studies (see [email or web address]). Follow-up biopsies in women with LSIL on cytology may detect high grade lesions in up to 15-20% of patients. Electronically Signed Out JUAN Roman([facility]) Ivana Leyva MD Cervical cytology [...] results is suggested (please call Microbiology at [phone] for results). CLINICAL INFORMATION: Menstrual History: Cyclic Date of Last Menstrual Period: 11/19/12 SPECIMEN DESCRIPTION: A: THIN PREP (CERVICAL/VAGINAL) THIN PREP PROCESS CELLULAR ENHANCEMENT ICD: V76.2 CERVIX, SPECIAL SCREENING FOR MALIGNANT NEOPLASM 795.03 (LGSIL) PAPANICOLAOU SMEAR OF CERVIX W/LOW GRADE SQUAMOUS INTRAEPITHELIAL LESION F: A; RT IMAGE 86637, 87818 C\V (PO) SNOMED CODES: A; K1P097 [id number] M-[id number] In cases where a pathologist has signed out the report, the service has been rendered in part by a resident. The signing pathologist has performed and is responsible for the reported pathologic evaluation. Elena Manrique MD LAB PATHOLOGY [facility] Final Result SUNQUEST from Last 3 Months or Most Recently Relevant to Health Maintenance Care Teams Supervisor [employer] Relationship Specialty Start Date End Date Norm Us MD [address] [place] [address] PCP - General 10/18/20
--- OUTSIDE RECORDS SUMMARY | 2024-12-21 14:30 | XMS_ITS | Patient Health Record ---
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 Name Role Phone Phylicia Sahu Unavailable [phone] Allergies Allergen (clinical drug ingredient) Drug/Non Drug [...] W/U Status Risk Notes Problem Third trimester (84475900) Supervision of other normal , third trimester (Z34.83) 020 Active confirmed Supervision of other normal , third trimester Problem state, 2 weeks (49867614) 2 weeks follow-up (Z39.2) 021 Active confirmed visit Problem Primigravida (641817532) Encounter for care in second trimester of first (Z34.02) 020 Active confirmed Encounter for supervision of normal first , second trimester Problem 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 Problem First trimester (53610669) Supervision of other normal , first trimester (Z34.81) 020 Active confirmed Supervision of other normal , first trimester Problem Gestation period, 26 weeks (81695813) 26 weeks gestation of (Z3A.26) 020 Active [...] complicating , third trimester Problem Excessive vomiting (30836866) Excessive vomiting (O21.9) Active confirmed Nausea and vomiting in Problem Gynecological examination normal (27591034962552 4) Cervical smear, as part of routine gynecological examination (Z01.419) Active confirmed Annual without abnormal findings Problem Admission for routine ultrasound (Z36.89) Active confirmed Encounter for other specified screening Problem *Unspecified infection of urinary tract in , second trimester (Code also weeks of gestation) (O23.42) Active confirmed Unspecified infection of urinary tract in , second trimester Problem Opioid dependence in remission (804770186) Heroin use disorder, moderate, in sustained remission, on maintenance therapy, dependence (F11.21) Active confirmed Opioid dependence, in remission Plan Of Treatment No Information Medical (General) History Medical History History ICD Code anxiety depression Reticular neuropathy Vaginal bleeding Surgical History Surgery Date(Month/Year) None
[2024-12-21 14:44] VITALS: BP 124/85; PULSE 80; RESP 18; O2SAT 100; BMI 28.5
--- NOTE | 2024-12-21 15:44 | A.OFFVIS_ITS ---
[facility] Disclaimer: The information contained in this section may have been updated after the patient was seen, as this information can be updated by other users. Medical History Depression This depression is major. I think this is kept her from going to appointments please see noncompliance below. We we will continue the bupropion at 75 mg twice daily. Addition have added duloxetine 20 mg twice daily. I stop the tramadol. Tramadol does have norepinephrine serotoninergic activity and sodas duloxetine. So any benefit she may be getting from the tramadol but she certainly can get from the duloxetine and it may help her depression as well. Anxiety Abnormal electrocardiogram [ECG] [EKG] Surgical History History of dental surgery Family History Other Family history of diabetes mellitus Family history of lung cancer Social History Smoking Status: Current every day smoker tobacco type: cigarettes packs per day: 1 alcohol intake: never substance use type: marijuana current occupational status: other Travel in the last 8 weeks?: None household members: spouse housing: house marital status: PM Subjective & Objective Subjective Subjective:: Patient is a pleasant 44-year-old female who presents today for follow-up. Today she rates her pain a 5 out of 10. She denies any new changes from our last visit. Patient is still stating that she still having the low back and leg symptoms. Patient was given a physical therapy order at the last visit however she states that she has just been sidetracked and has never gotten around to falling. Patient is asking if we could send in a new order. Patient was tried on methocarbamol 500 mg 3 times a day from our office at the last visit however she states she did not notice significant relief. Her Hank has been reviewed and is appropriate. Review of Systems: General: No recent weight changes, no fever, no sleep disturbances Respiratory: No cough, no shortness of air, no recurring pulmonary infections Cardiovascular/peripheral vascular: No chest pain, no palpitations, no edema, no shortness of breath Gastrointestinal: No new onset incontinence, normal bowel movements reported Genitourinary: No new onset incontinence Musculoskeletal: Low back pain, leg pain Psychiatric: [Normal mood/affect] Neurological: [Denies weakness in extremities], [denies balance issues] Pain at rest (0-10 scale): 5 Objective Objective:: Physical Exam: General: Alert and oriented x3, no acute distress, pleasant and cooperative Lungs: Respirations even and unlabored, symmetrical chest expansion Eyes: PERRL Musculoskeletal: Flexion and extension of lumbar [spine] somewhat guarded seco ndary to pain, [antalgic gait noted] Neurological: Speech clear, no gross sensory deficit Has patient had previous pain injection?: No Conservative treatment options previously tried: Home exercise plan Length of treatment: Longer than 12 weeks Meds Home Medications and Allergies Home Medications ?Medication ?Instructions ?Recorded ?Confirmed ?Type methadone 40 mg soluble tablet 120 mg PO DAILY . 06/1512/21/24 History pregabalin 300 mg capsule (Lyrica) 300 mg PO BID #30 c aps 07/14/23 12/21/24 Rx venlafaxine 75 mg capsule,extended 75 mg PO DIRECTE D 06/27/24 12/21/24 History release 24 hr buspirone 10 mg tablet 10 mg PO DAILY 08/09/2412/05 History cariprazine 1.5 mg capsule 1.5 mg PO DAILY 08/09/24 History (Vraylar) medroxyprogesterone 150 mg/mL 150 mg IM [id number] #1 mL 08/22/24 12/21/24 Rx intramuscular suspension methocarbamol 500 mg tablet 500 mg PO TID #42 tabs 05/3112/21/24 Rx New Prescriptions to Start Prescriptions: Allergies Allergy/AdvReac Type Severity Reaction Status Date / Time Penicillins Allergy Intermediate Hives Verified 11/15/24 11:36 Assessment and Plan *Assessment and plan (1) Lumbar radiculopathy: Status: Acute Category: Medical Code(s): M54.16 - Radiculopathy, lumbar region Plan I did discuss with the patient to try making to the tablets together of the methocarbamol and see if that works better and to call our office and let us know. I will put in a new order for the physical therapy. Patient will follow- up in 6 weeks. Patient has been instructed to contact the clinic with any concerns before the next appointment. Dr. Portillo has reviewed this note and agrees with this plan of care. This note was dictated using voice recognition software and make contain errors or omissions. All injections are used with Lidocaine, Bupivacaine and dexamethasone. Occasionally urine drug screen is needed to verify patient's compliance with our office pain contract. This is ordered based off specific treatments related to chronic pain with the potential to abuse certain medications.
== END 2024-12-21 23:59 | disposition home or self-care (01) ==
PROVIDERS: PCP Family Medicine; Visit Provider Nurse Practitioner Family
DX: M54.16 Radiculopathy, lumbar region (principal); Z79.899 Other long term (current) drug therapy
CPT/HCPCS: 99212; G0463